=== PATIENT | female | born 1980 | race Caucasian/White ===

== ENCOUNTER 2017-07-28 09:36 | Inpatient (IN) | payer OTHER ==
[2017-07-28 10:36] VITALS: BMI 25.0
--- NOTE | 2017-07-28 10:41 | HP ---
CIWA Score - CIWA Score Nausea/Vomitin-Mild Nausea/No Vomiting Muscle Tremors: 4-Moderate,w/Arms Extend Anxiety: 4-Mod. Anxious/Guarded Agitation: 1-Slight > Activity Paroxysmal Sweats: No Perspiration Orientation: 0-Oriented Tacttile Disturbances: 0-None Auditory Disturbances: 1-Very Mild Visual Disturbances: 1-Very Mild Sensitivity Headache: 1-Very Mild CIWA-Ar Total Score: 13 Admission ROS BHS - HPI Chief Complaint: I'm here to detox from alcohol, I feel sick Allergies/Adverse Reactions: Allergies Allergy/AdvReac Type Severity Reaction Status Date / Time HALDOL Allergy Severe Uncoded 07/28/17 11:04 History of Present Illness: 36 yo woman here for detox from alcohol. Also with opiate dependence, on methadone program for one month - was dosed today and brought in bottle ([facility] [phone] or [id number]). History of black outs and seizures, last seizure 2 months ago. Despite methadone program, she sniffed heroin several times this week when she missed her methadone program. Although she states she takes prescribed klonopin and adderall from a [place] psychiatrist, they do not appear on the [facility] when [place] state also checked. Previously in detox a month ago for two weeks at [facility]. Exam Limitations: No Limitations - Ebola screening Have you traveled outside of the country in the last 21 days: No (N) Have you had contact with anyone from an Ebola affected area: No Have you been sick,other than usual withdrawal symptoms: No Do you have a fever: No - Review of Systems Constitutional: Loss of Appetite, Night Sweats, Changes in sleep EENT: reports: Blurred Vision Respiratory: reports: No Symptoms reported Cardiac: reports: No Symptoms Reported GI: reports: Nausea : reports: Frequency Musculoskeletal: reports: No Symptoms Reported Integumentary: reports: Dryness Neuro: reports: Headache, Seizure, Tremors Endocrine: reports: No Symptoms Reported Hematology: reports: No Symptoms Reported Psychiatric: reports: Judgement Intact, Mood/Affect Appropiate, Orientated x3, Agitated, Anxious Other Systems: Reviewed and Negative Patient History - Patient Medical History Hx Asthma: No Hx Chronic Obstructive Pulmonary Disease (COPD): No Hx Cancer: No Hx Cardiac Disorders: No Hx Congestive Heart Failure: No Hx Hypertension: No Hx Hypercholesterolemia: No Hx Pacemaker: No Hx Seizures: Yes (one month ago) Hx Dementia: No Hx Diabetes: No Hx Gastrointestinal Disorders: No Hx Liver Disease: No Hx Genitourinary Disorders: No Hx Sexually Transmitted Disorders: No Hx Renal Disease (ESRD): No Hx Human Immunodeficiency Virus (HIV): No Hx Hepatitis C: Yes (no treatment) Hx Depression: Yes (on meds ) Hx Suicide Attempt: Yes (may 2017, hospitalized in OR) Hx Bipolar Disorder: Yes Hx Schizophrenia: No - Patient Surgical History Past Surgical History: No Hx Neurologic Surgery: No Hx Cataract Extraction: No Hx Cardiac Surgery: No Hx Lung Surgery: No Hx Breast Surgery: No Hx Breast Biopsy: No Hx Abdominal Surgery: No Hx Appendectomy: No Hx Cholecystectomy: No Hx Genitourinary Surgery: No Hx Section: No Hx Orthopedic Surgery: No Anesthesia Reaction: No - PPD History Previous Implant?: Yes Documented Results: Negative w/o proof Date: 02/18/13 PPD to be Administered?: Yes - Reproductive History Patient is a Female of Child Bearing Age (11 -55 yrs old): Yes Last Menstrual Period: 02/13/13 Patient : Yes - Smoking Cessation Smoking history: Current every day smoker Have you smoked in the past 12 months: Yes Aproximately how many cigarettes per day: 40 Hx Chewing Tobacco Use: No Initiated information on smoking cessation: Yes 'Breaking Loose' booklet given: 07/28/17 (to give on floor) - Substance & Tx. History Hx Alcohol Use: Yes Hx Substance Use: Yes Substance Use Type: Alcohol, Cocaine Hx Substance Use Treatment: Yes (detox, rehab, suboxone, methadone ) - Substances Abused Alcohol Route: Oral Frequency: Daily Amount used: 1 gallon vodka Age of first use: 9 Date of Last Use: 07/28/17 Crack Route: Smoking Frequency: 3-6 times per week Amount used: two $20 bags Age of first use: 16 Date of Last Use: 07/26/17 Heroin Route: Inhalation Frequency: 1-2 times per week Amount used: 30 bags Age of first use: 19 Date of Last Use: 07/25/17 Family Disease History - Family Disease History Family Disease History: Other: Father (, no contact), Mother (living, ) , Sister (three), Daughter (one ) Admission Physical Exam BHS - Vital Signs Vital Signs: Vital Signs - 24 hr 07/28/17 10:07 Temperature 96.5 F L Pulse Rate 87 Respiratory 20 Rate Blood Pressure 135/90 - Physical General Appearance: Yes: Nourished, Appropriately Dressed, Mild Distress, Irritable, Anxious HEENTM: Yes: Hearing grossly Normal, Normocephalic, Normal Voice, Pharynx Normal Respiratory: Yes: Normal Breath Sounds, No Respiratory Distress Neck: Yes: No masses,lesions,Nodules, Supple Breast: Yes: Breast Exam Deferred Cardiology: Yes: Regular Rhythm, Regular Rate Abdominal: Yes: Flat, Soft Genitourinary: Yes: Frequency Back: Yes: Normal Inspection Musculoskeletal: Yes: full range of Motion, Gait Steady Extremities: Yes: Normal Inspection, Normal Range of Motion, Non-Tender, Swelling (both hands with mild swelling and erythema - she states that happens because she was out in the cold) Neurological: Yes: Fully Oriented, Alert, Motor Strength 5/5, Normal Mood/Affect , Normal Response Integumentary: Yes: Normal Color, Warm Lymphatic: Yes: Within Normal Limits - Diagnostic (1) Alcohol dependence Current Visit: Yes Status: Active (2) Cocaine dependence Current Visit: Yes Status: Chronic (3) Methadone maintenance therapy patient Current Visit: Yes Status: Chronic Comment: 120mg daily, [facility] [phone] or [id number] -brought in bottle for verification and had dose today (4) Hepatitis C Current Visit: Yes Status: Chronic Qualifiers: Viral hepatitis chronicity: chronic Hepatic coma status: without hepatic coma Qualified Code(s): B18.2 - Chronic viral hepatitis C (5) Nicotine dependence Current Visit: Yes Status: Acute Qualifiers: Nicotine product type: cigarettes Substance use status: uncomplicated Qualified Code(s): F17.210 - Nicotine dependence, cigarettes, uncomplicated (6) History of seizure Current Visit: Yes Status: Chronic Comment: last one about may [address] [facility] - Detox or Rehab [facility] Level of Care: Medically Managed Detox Regimen/Protocol: Librium [facility] Breath Alcohol Content Breath Alcohol Content: 0.008 Urine Pregancy Test - Result Urine Test Results: Negative- NO Line Present Urine Drug Screen - Results Drug Screen Negative: No Urine Drug Screen Results: LYLY-Cocaine, OPI-Opiates, MTD-Methadone, TCA- Tricyclic Antidepress
[2017-07-28] MEDS ORDERED: MAGNESIUM HYDROX 2400MG/30ML ORAL SUSPENSION 30 ML CUP PO PRN (10:56)
[2017-07-28] MEDS ORDERED: MAGNESIUM CITRATE 300 ML BOTTLE PO PRN (10:56)
[2017-07-28] MEDS ORDERED: guaiFENesin/D-METHORPHAN HB 10 ML UNIT-DOSE CUPS PO PRN (10:56)
[2017-07-28] MEDS ORDERED: LOPERAMIDE HCL 2 MG CAPSULE PO PRN (10:56)
[2017-07-28] MEDS ORDERED: chlordiazePOXIDE HCL 25 MG CAPSULE PO PRN (10:56)
[2017-07-28] MEDS ORDERED: MAG HYDROX/AL HYDROX/SIMETH 30 ML UNIT-DOSE CUP PO PRN (10:56)
[2017-07-28] MEDS ORDERED: ACETAMINOPHEN 325 MG TABLET (FP) PO PRN (10:56)
[2017-07-28] MEDS ORDERED: P-EPHED 60MG/TRIPROLIDI 2.5MG TABLET PO PRN (10:56)
[2017-07-28] MEDS: GABAPENTIN 300 MG CAPSULE (FP) PO SCH ×2 (14:52→18:56)
[2017-07-28] MEDS: diazePAM 5 MG TABLET PO SCH ×2 (14:53→22:26)
[2017-07-28] MEDS ORDERED: diazePAM 5 MG TABLET PO ONE (15:30)
[2017-07-28] MEDS ORDERED: chlordiazePOXIDE HCL 25 MG CAPSULE PO ONE (16:00)
[2017-07-28] MEDS ORDERED: chlordiazePOXIDE HCL 25 MG CAPSULE PO SCH (17:00)
--- NOTE | 2017-07-28 17:04 | CONSULT ---
[facility] Psychiatric Consult - Data Date of interview: 07/28/17 Admission source: [facility] Identifying data: [facility] for this 36 y/o female seeking detox treatment on for heroin,alcohol and cocaine dependence.Patient is single,a mother of one,homeless,unemployed and deprived of financial assistance. Substance Abuse History: Confirmed by patient in this session.See current [facility] report for details : Smoking history: Current every day smoker. Have you smoked in the past 12 months: Yes. Aproximately how many cigarettes per day: 40. Hx Chewing Tobacco Use: No. Initiated information on smoking cessation: Yes. 'Breaking Loose' booklet given: 07/28/17 (to give on floor). - Substance & Tx. History. Hx Alcohol Use: Yes. Hx Substance Use: Yes. Substance Use Type : Alcohol, Cocaine. Hx Substance Use Treatment: Yes (detox, rehab, suboxone, methadone ). - Substances Abused. Alcohol. Route: Oral. Frequency: Daily. Amount used: 1 gallon vodka. Age of first use: 9. Date of Last Use: . Crack. Route: Smoking. Frequency: 3-6 times per week. Amount used : two $20 bags. Age of first use: 16. Date of Last Use: 07/26/17. Heroin. Route: Inhalation. Frequency: 1-2 times per week. Amount used: 30 bags. Age of first use: 19. Date of Last Use: 07/25/17 Medical History: History of hepatitis C and withdrawal-related sezures. Psychiatric History: Onset of psychiatric disturbances in childhood as per self- report.Diagnosed with MDD,Anxiety Disorder and Bipolar Disorder.Patient admits to a history of multiple psychiatric hospitalizations,mainly in [place] ([facility] and [place] ([facility]).According to patient,she is prescribed adderall,klonopin,gabapentin,elavil.Sees a psychiatrist for medication management at the [facility].Ms Ren admits to a history of suicide attempts (wrist-cutting).Patient is an anxious,medication- seeking,unreliable and disorganized historian.Currently on suboxone therapy. Physical/Sexual Abuse/Trauma History: Patient denies history of abuse. Additional Comment: Urine Drug Screen Results: LYLY-Cocaine, OPI-Opiates, MTD- Methadone, TCA-Tricyclic Antidepressant.Noted. Mental Status Exam - Mental Status Exam Alert and Oriented to: Time, Place, Person Cognitive Function: Good Patient Appearance: Unkempt, Disheveled Mood: Nervous, Anxious, Irritable Affect: Mood Congruent Patient Behavior: Restless, Fatigued, Talkative, Cooperative Speech Pattern: Clear, Perseverating (about medications) Voice Loudness: Normal Thought Process: Disorganized Hallucinations: Denies Suicidal Ideation: Denies Homicidal Ideation: Denies Insight/Judgement: Poor Sleep: Poorly, Difficulty falling asleep Appetite: Good Muscle strength/Tone: Normal Gait/Station: Normal Psychiatric Findings - Problem List ([place] 1, 2,3) (1) Opioid dependence on agonist therapy Current Visit: Yes Status: Chronic (2) Alcohol dependence Current Visit: Yes Status: Active (3) Cocaine dependence Current Visit: Yes Status: Chronic (4) Nicotine dependence Current Visit: Yes Status: Chronic Qualifiers: Nicotine product type: cigarettes Substance use status: uncomplicated Qualified Code(s): F17.210 - Nicotine dependence, cigarettes, uncomplicated (5) Substance induced mood disorder Current Visit: Yes Status: Acute - Initial Treatment Plan Initial Treatment Plan: Psychoeducation.Sleep hygiene.Detoxification in progress.Ambien 10 mg po hs prn.Side effects/benefits discussed with patient.She agrees with this careplan.Observation.NO evidence of psychostimulant and a refill for 15 day supply of amitryptiline (100 mg) in pharmacy claims of 07/10/17 at [facility].Amitryptiline is held until EKG results.
[2017-07-28] MEDS: diazePAM 5 MG TABLET PO PRN (18:56)
[2017-07-28] MEDS: THIAMINE HCL 100 MG TABLET (FP) PO SCH (22:25)
[2017-07-28] MEDS: ZOLPIDEM TARTRATE 5 MG TABLET PO PRN (22:26)
[2017-07-29] MEDS: diazePAM 5 MG TABLET PO SCH ×3 (05:54→22:13)
[2017-07-29] MEDS: METHADONE HCL 40 MG DISPERSABLE TABLET PO SCH (05:55)
[2017-07-29] MEDS: GABAPENTIN 300 MG CAPSULE (FP) PO SCH ×3 (05:55→22:13)
[2017-07-29] MEDS ORDERED: METHADONE HCL 10 MG TABLET PO ONE (06:00)
[2017-07-29] MEDS ORDERED: METHADONE HCL 10 MG TABLET PO SCH (06:00)
[2017-07-29] MEDS: diazePAM 5 MG TABLET PO PRN ×2 (09:13→17:43)
[2017-07-29] MEDS: PRENATAL VITAMINS W/ FOLIC ACID TABLET (FP) PO SCH (10:40)
[2017-07-29] MEDS: NICOTINE POLACRILEX 4 MG GUM BUC PRN (10:41)
[2017-07-29] MEDS: hydrOXYzine PAMOATE 50 MG CAPSULE (FP) PO PRN ×2 (10:42→19:59)
[2017-07-29 14:50] LABS: URINE APPEARANCE SLCLOUDY; URINE BILIRUBIN NEGATIVE (NEGATIVE); URINE BLOOD NEGATIVE (NEGATIVE); URINE COLOR YELLOW; URINE GLUCOSE (UA) NEGATIVE (NEGATIVE); URINE KETONE NEGATIVE (NEGATIVE); URINE NITRITE NEGATIVE (NEGATIVE); URINE PROTEIN NEGATIVE (NEGATIVE); URINE UROBILINOGEN 4.0 E.U/dl mg/dL (0.2-1.0)
[2017-07-29 14:53] LABS: URINE LEUK ESTERASE 1+ (NEGATIVE)
[2017-07-29 14:56] LABS: URINE RBC 2 /hpf (0-3); URINE WBC 5 /hpf (3-5)
[2017-07-29] MEDS ORDERED: chlordiazePOXIDE HCL 25 MG CAPSULE PO SCH (17:00)
[2017-07-29] MEDS: MENTHOL/PHENOL 1 EACH UD MM PRN (17:46)
--- NOTE | 2017-07-29 18:16 | PN ---
S CIWA - CIWA Score Nausea/Vomitin-Mild Nausea/No Vomiting Muscle Tremors: 4-Moderate,w/Arms Extend Anxiety: 4-Mod. Anxious/Guarded Agitation: 3 Paroxysmal Sweats: 3 Orientation: 0-Oriented Tacttile Disturbances: 0-None Auditory Disturbances: 0-None Visual Disturbances: 0-None Headache: 0-None Present CIWA-Ar Total Score: 15 BHS Progress Note (SOAP) Subjective: Anxiety,tremors,restless,sweating,interrupted sleep. Objective: 07/29/17 18:16 Vital Signs - 8 hr 07/29/17 07/29/17 07/29/17 11:58 14:24 17:35 Temperature 98.2 F 97.7 F 98.9 F Pulse Rate 88 82 68 Respiratory 18 18 16 Rate Blood Pressure 148/80 91/60 94/55 Laboratory Tests 07/29/17 14:00 Urine Color Yellow Urine Appearance Slcloudy Urine pH 7.0 Ur Specific [place] 1.019 Urine Protein Negative Urine Glucose (UA) Negative Urine Ketones Negative Urine Blood Negative Urine Nitrite Negative Urine Bilirubin Negative Urine Urobilinogen 4.0 e.u/dl H Urine WBC (Auto) 5 Urine RBC (Auto) 2 Ur Epithelial Cells Rare Assessment: 07/29/17 18:17 Withdrawal sx. Plan: Continue detox
[2017-07-29 19:12] LABS: URINE LEUK ESTERASE Negative (NEGATIVE)
[2017-07-29] MEDS: THIAMINE HCL 100 MG TABLET (FP) PO SCH (22:13)
[2017-07-29] MEDS: ZOLPIDEM TARTRATE 5 MG TABLET PO PRN (22:13)
[2017-07-30] MEDS: diazePAM 5 MG TABLET PO PRN ×4 (02:32→16:56)
[2017-07-30] MEDS: IBUPROFEN 400 MG TABLET (FP) PO PRN ×3 (02:32→22:30)
[2017-07-30] MEDS: METHADONE HCL 40 MG DISPERSABLE TABLET PO SCH (05:43)
[2017-07-30] MEDS: GABAPENTIN 300 MG CAPSULE (FP) PO SCH ×3 (05:43→22:30)
[2017-07-30] MEDS: hydrOXYzine PAMOATE 50 MG CAPSULE (FP) PO PRN (09:27)
[2017-07-30] MEDS: PRENATAL VITAMINS W/ FOLIC ACID TABLET (FP) PO SCH (11:01)
[2017-07-30] MEDS: diazePAM 5 MG TABLET PO SCH ×2 (11:02→22:30)
[2017-07-30] MEDS: NICOTINE POLACRILEX 4 MG GUM BUC PRN ×3 (11:06→22:30)
[2017-07-30] MEDS: MENTHOL/PHENOL 1 EACH UD MM PRN (11:07)
[2017-07-30] MEDS ORDERED: BISACODYL 5 MG TABLET.DR (FP) PO PRN (11:07)
[2017-07-30] MEDS ORDERED: BISACODYL 5 MG TABLET.DR (FP) PO ONE (11:08)
[2017-07-30 11:32] LABS: MCH 30.9 pg (25.7-33.7); MEAN CELL VOLUME 93.8 fl (80-96); MEAN PLT VOLUME 7.2 fl (7.5-11.1); PLATELET COUNT 375 K/MM3 (134-434); RDW 12.6 % (11.6-15.6); WHITE BLOOD COUNT 5.1 K/mm3 (4.0-10.0)
[2017-07-30 11:40] LABS: ALBUMIN 3.7 g/dl (3.4-5.0); ANION GAP 9 (8-16); CALCIUM 9.7 mg/dL (8.5-10.1); CO2 29 mmol/L (21-32); CREATININE 0.7 mg/dL (0.55-1.02); GLUCOSE,RANDOM 99 mg/dL (74-106); SGOT/AST 47 U/L (15-37)
[2017-07-30 11:43] LABS: ALK PHOS 104 U/L (45-117); BILIRUBIN,TOTAL 0.4 mg/dL (0.2-1.0); SGPT/ALT 33 U/L (12-78); TOT PROT 7.5 g/dl (6.4-8.2)
[2017-07-30 12:29] LABS: HIV 1 & 2 AB NEGATIVE; HIV 1 AGp24 NEGATIVE
--- NOTE | 2017-07-30 12:56 | PN ---
[facility] CIWA - CIWA Score Nausea/Vomitin Muscle Tremors: 3 Anxiety: 3 Agitation: 3 Paroxysmal Sweats: 3 Orientation: 0-Oriented Tacttile Disturbances: 1-Very Mild Itch/Numbness Auditory Disturbances: 0-None Visual Disturbances: 0-None Headache: 0-None Present CIWA-Ar Total Score: 15 [facility] Progress Note (SOAP) Subjective: interrupted sleep, sweats, shakes, constipation Objective: 07/30/17 12:53 Vital Signs Temperature 96.1 F L 07/30/17 09:52 Pulse Rate 93 H 07/30/17 09:52 Respiratory Rate 18 07/30/17 09:52 Blood Pressure 126/82 07/30/17 09:52 O2 Sat by Pulse Oximetry (%) Laboratory Tests 07/29/17 07/30/17 07/30/17 14:00 07:45 07:45 WBC 5.1 RBC 4.44 Hgb 13.7 Hct 41.7 MCV 93.8 MCH 30.9 MCHC 33.0 RDW 12.6 D Plt Count 375 MPV 7.2 L Sodium 134 L Potassium 4.6 Chloride 96 L Carbon Dioxide 29 Anion Gap 9 BUN 8 D Creatinine 0.7 Creat Clearance w eGFR > 60 Random Glucose 99 Calcium 9.7 Total Bilirubin 0.4 D AST 47 H ALT 33 D Alkaline Phosphatase 104 Total Protein 7.5 Albumin 3.7 Urine Color Yellow Urine Appearance Slcloudy Urine pH 7.0 Ur Specific [place] 1.019 Urine Protein Negative Urine Glucose (UA) Negative Urine Ketones Negative Urine Blood Negative Urine Nitrite Negative Urine Bilirubin Negative Urine Urobilinogen 4.0 e.u/dl H Ur Leukocyte Esterase Negative Urine WBC (Auto) 5 Urine RBC (Auto) 2 Ur Epithelial Cells Rare RPR Titer HIV 1&2 Antibody Screen HIV P24 Antigen 07/30/17 07/30/17 07:45 07:45 WBC RBC Hgb Hct MCV MCH MCHC RDW Plt Count MPV Sodium Potassium Chloride Carbon Dioxide Anion Gap BUN Creatinine Creat Clearance w eGFR Random Glucose Calcium Total Bilirubin AST ALT Alkaline Phosphatase Total Protein Albumin Urine Color Urine Appearance Urine pH Ur Specific [place] Urine Protein Urine Glucose (UA) Urine Ketones Urine Blood Urine Nitrite Urine Bilirubin Urine Urobilinogen Ur Leukocyte Esterase Urine WBC (Auto) Urine RBC (Auto) Ur Epithelial Cells RPR Titer Nonreactive HIV 1&2 Antibody Screen Negative HIV P24 Antigen Negative pt aox3 in nad ambulating , anxious Assessment: 07/30/17 12:54 withdrawal sx's constipation Plan: cont. detox increase fluids dulcolax 5mg /d vistaril 25mg q 4h /prn .
[2017-07-30] MEDS ORDERED: chlordiazePOXIDE 5 MG CAPSULE PO SCH (17:00)
[2017-07-30] MEDS: ZOLPIDEM TARTRATE 5 MG TABLET PO PRN (22:29)
[2017-07-30] MEDS: THIAMINE HCL 100 MG TABLET (FP) PO SCH (22:31)
[2017-07-31] MEDS: hydrOXYzine PAMOATE 50 MG CAPSULE (FP) PO PRN ×2 (00:46→17:11)
[2017-07-31] MEDS: diazePAM 5 MG TABLET PO PRN ×3 (01:28→12:33)
[2017-07-31] MEDS: GABAPENTIN 300 MG CAPSULE (FP) PO SCH ×3 (05:48→22:23)
[2017-07-31] MEDS: METHADONE HCL 40 MG DISPERSABLE TABLET PO SCH (05:48)
[2017-07-31] MEDS: PRENATAL VITAMINS W/ FOLIC ACID TABLET (FP) PO SCH (10:09)
[2017-07-31] MEDS: diazePAM 5 MG TABLET PO SCH ×2 (10:09→22:23)
[2017-07-31] MEDS: BISACODYL 5 MG TABLET.DR (FP) PO PRN (10:37)
--- NOTE | 2017-07-31 15:27 | PN ---
S Progress Note (SOAP) Subjective: Fatigue, chills, tremor, body aches, loss of appetite, constipation (requesting dulcolax, stated she takes dulcolax 10mg daily at home, had small bm yesterday but was hard as per patient). Patient requesting psychiatric consult stating that she takes antipsychotic medication at home and would like to resume them. Objective: 07/31/17 15:24 Last Vital Signs Temp Pulse Resp BP Pulse Ox 96.8 F L 98 H 16 130/85 07/31/17 14:09 07/31/17 14:09 07/31/17 14:09 07/31/17 14:09 Laboratory Tests 07/29/17 07/30/17 07/30/17 14:00 07:45 07:45 WBC 5.1 RBC 4.44 Hgb 13.7 Hct 41.7 MCV 93.8 MCH 30.9 MCHC 33.0 RDW 12.6 D Plt Count 375 MPV 7.2 L Sodium 134 L Potassium 4.6 Chloride 96 L Carbon Dioxide 29 Anion Gap 9 BUN 8 D Creatinine 0.7 Creat Clearance w eGFR > 60 Random Glucose 99 Calcium 9.7 Total Bilirubin 0.4 D AST 47 H ALT 33 D Alkaline Phosphatase 104 Total Protein 7.5 Albumin 3.7 Urine Color Yellow Urine Appearance Slcloudy Urine pH 7.0 Ur Specific [place] 1.019 Urine Protein Negative Urine Glucose (UA) Negative Urine Ketones Negative Urine Blood Negative Urine Nitrite Negative Urine Bilirubin Negative Urine Urobilinogen 4.0 e.u/dl H Ur Leukocyte Esterase Negative Urine WBC (Auto) 5 Urine RBC (Auto) 2 Ur Epithelial Cells Rare RPR Titer HIV 1&2 Antibody Screen HIV P24 Antigen 07/30/17 07/30/17 07:45 07:45 WBC RBC Hgb Hct MCV MCH MCHC RDW Plt Count MPV Sodium Potassium Chloride Carbon Dioxide Anion Gap BUN Creatinine Creat Clearance w eGFR Random Glucose Calcium Total Bilirubin AST ALT Alkaline Phosphatase Total Protein Albumin Urine Color Urine Appearance Urine pH Ur Specific [place] Urine Protein Urine Glucose (UA) Urine Ketones Urine Blood Urine Nitrite Urine Bilirubin Urine Urobilinogen Ur Leukocyte Esterase Urine WBC (Auto) Urine RBC (Auto) Ur Epithelial Cells RPR Titer Nonreactive HIV 1&2 Antibody Screen Negative HIV P24 Antigen Negative Labs noted Assessment: 07/31/17 15:24 Withdrawal symptoms Noted with prolonged QTc of 483 on EKG, otherwise NSR at 82 bpm Plan: Continue detox Encouraged to drink lots of water Psychiatric consult placed (psychiatrist awaits repeated EKG in order to resume any antipsychotic medication) Prolonged QTc: asymptomatic, repeat EKG in AM
--- NOTE | 2017-07-31 16:47 | PN ---
Psychiatric Progress Note Vital Signs: Vital Signs Period Temp Pulse Resp BP Sys/Boyce Pulse Ox Last 24 Hr 96.3 F-98.2 F 71-101 16-18 98-130/56-85 Date of Session: 07/31/17 Chief Complaint:: " I want my elavil" HPI: Pt. is a 36 year old female with h/o heroin, alcohol, and cocaine dependence. ROS: Pt. currently sedated but oriented x3. Current Medications: Active Medications Generic Name Dose Route Start Last Admin Trade Name Freq PRN Reason Stop Dose Admin Acetaminophen 650 mg 07/28/17 10:56 Tylenol - PO Q4H PRN FEVER OR PAIN Al Hydroxide/Mg Hydroxide 30 ml 07/28/17 10:56 Mylanta Oral Suspension - PO Q6H PRN DYSPEPSIA Bisacodyl 10 mg 07/31/17 10:12 07/31/17 10:37 Dulcolax - PO 10 mg DAILY PRN Administration CONSTIPATION Diazepam 5 mg 07/30/17 10:00 07/31/17 10:09 Valium - PO 07/31/17 22:01 5 mg BID NEERAJ Administration Diazepam 5 mg 08/01/17 10:00 Valium - PO 08/01/17 10:01 DAILY NEERAJ Eucalyptus/Menthol/Phenol/Sorbitol 1 each 07/28/17 10:56 07/30/17 11:07 Cepastat Lozenge - MM 1 each Q4H PRN Administration SORE THROAT Gabapentin 300 mg 07/29/17 06:00 07/31/17 14:37 Neurontin - PO 300 mg TID NEERAJ Administration Guaifenesin 10 ml 07/28/17 10:56 Robitussin Dm - PO Q6H PRN COUGH Hydroxyzine Pamoate 50 mg 07/28/17 10:56 07/31/17 00:46 Vistaril - PO 50 mg Q4H PRN Administration AGITATION Ibuprofen 400 mg 07/28/17 10:56 07/30/17 22:30 Motrin - PO 400 mg Q6H PRN Administration SEVERE PAIN Loperamide HCl 4 mg 07/28/17 10:56 Imodium - PO Q6H PRN DIARRHEA Magnesium Citrate 300 ml 07/28/17 10:56 07/29/17 13:27 Citroma - PO 300 ml Q48H PRN Administration CONSTIPATION Magnesium Hydroxide 30 ml 07/28/17 10:56 07/29/17 09:15 Milk Of Magnesia - PO 30 ml DAILY PRN Administration CONSTIPATION Methadone HCl 120 mg 07/29/17 06:00 07/31/17 05:48 Dolophine - PO 120 mg DAILY@0600 NEERAJ Administration Nicotine Polacrilex 4 mg 07/28/17 10:56 07/30/17 22:30 Nicorette Gum - BUC 4 mg Q2H PRN Administration NICOTINE REPLACEMENT RX Multivit/Folic Acid/Iron 1 tab 07/29/17 10:00 07/31/17 10:09 Vitamins (Sjr) - PO 1 tab DAILY NEERAJ Administration Pseudoephedrine/Triprolidine 1 combo 07/28/17 10:56 Actifed - PO TID PRN NASAL CONGESTION Thiamine HCl 100 mg 07/28/17 22:00 07/30/17 22:31 Vitamin B1 - PO 100 mg HS NEERAJ Administration Zolpidem Tartrate 10 mg 07/28/17 22:00 07/30/17 22:29 Ambien - PO 10 mg HS PRN Administration INSOMNIA Medication(s) Change(s): No Current Side Effect: No Lab tests ordered: No Lab tests reviewed: Yes Provider note:: Pt. requesting to speak to the psychiatric nurse practitioner in reference to resuming her elavil 100mg qhs. EKG abnormal at this time. EKG reordered for tomorrow. Pt. also presents as sedated and fatigued. Stated to typewriter tester, " I am so tired and sleepy." Blood Bank Worker informed patient that elavil will not be resumed tonight due to prolonged QT. Pt. agreeable with plan. Will continue to monitor. Total face to face time:: 15
[2017-07-31] MEDS ORDERED: chlordiazePOXIDE HCL 10 MG CAPSULE PO SCH (17:00)
[2017-07-31] MEDS: ZOLPIDEM TARTRATE 5 MG TABLET PO PRN (22:23)
[2017-07-31] MEDS: THIAMINE HCL 100 MG TABLET (FP) PO SCH (22:23)
[2017-08-01] MEDS: GABAPENTIN 300 MG CAPSULE (FP) PO SCH ×2 (05:33→13:12)
[2017-08-01] MEDS: METHADONE HCL 40 MG DISPERSABLE TABLET PO SCH (05:33)
[2017-08-01] MEDS: hydrOXYzine PAMOATE 50 MG CAPSULE (FP) PO PRN (08:02)
--- NOTE | 2017-08-01 08:33 | DS ---
[facility] Detox Discharge Summary Admission Date: 07/28/17 Discharge Date: 08/01/17 - History Present History: Alcohol Dependence, Cocaine Dependence - Physical Exam Results Vital Signs: Vital Signs Temperature 97.2 F L 08/01/17 06:03 Pulse Rate 87 08/01/17 06:03 Respiratory Rate 18 08/01/17 06:03 Blood Pressure 109/91 08/01/17 06:03 O2 Sat by Pulse Oximetry (%) - Treatment Hospital Course: Detox Protocol Followed, Detoxed Safely, Responded well, Discharged Condition Good, Rehab Referral Accepted - Medication Discharge Medications: Ambulatory Orders Amitriptyline HCl [Elavil -] 150 mg PO DAILY 07/28/17 Clonazepam [Klonopin] 1 mg PO TID 07/28/17 Dextroamphetamine/Amphetamine [Adderall Xr 30 mg Capsule] 30 mg PO BID 07/28/17 Gabapentin [Neurontin -] 300 mg PO Q8H 07/28/17 - Diagnosis (1) Alcohol dependence with uncomplicated withdrawal Current Visit: Yes Status: Chronic (2) Cocaine dependence Current Visit: Yes Status: Chronic (3) Nicotine dependence Current Visit: Yes Status: Chronic Qualifiers: Nicotine product type: cigarettes Substance use status: uncomplicated Qualified Code(s): F17.210 - Nicotine dependence, cigarettes, uncomplicated (4) Opioid dependence on agonist therapy Current Visit: Yes Status: Chronic (5) Hepatitis C Current Visit: Yes Status: Chronic Qualifiers: Viral hepatitis chronicity: chronic Hepatic coma status: without hepatic coma Qualified Code(s): B18.2 - Chronic viral hepatitis C (6) History of seizure Current Visit: Yes Status: Chronic
[2017-08-01] MEDS: PRENATAL VITAMINS W/ FOLIC ACID TABLET (FP) PO SCH (09:16)
--- NOTE | 2017-08-01 09:47 | DS ---
[facility] Detox Discharge Summary Admission Date: 07/28/17 Discharge Date: 08/01/17 - History Present History: Alcohol Dependence, Cocaine Dependence - Physical Exam Results Vital Signs: Vital Signs Temperature 97.2 F L 08/01/17 06:03 Pulse Rate 87 08/01/17 06:03 Respiratory Rate 18 08/01/17 06:03 Blood Pressure 109/91 08/01/17 06:03 O2 Sat by Pulse Oximetry (%) Pertinent Admission Physical Exam Findings: repeat ekg - no qt prolongation - Treatment Hospital Course: Detox Protocol Followed, Detoxed Safely, Responded well, Discharged Condition Good, Rehab Referral Accepted Patient has Accepted a Rehab Referral to: [facility] - Medication Discharge Medications: Ambulatory Orders Amitriptyline HCl [Elavil -] 150 mg PO DAILY 07/28/17 Clonazepam [Klonopin] 1 mg PO TID 07/28/17 Dextroamphetamine/Amphetamine [Adderall Xr 30 mg Capsule] 30 mg PO BID 07/28/17 Gabapentin [Neurontin -] 300 mg PO Q8H 07/28/17 - Diagnosis (1) Alcohol dependence with uncomplicated withdrawal Current Visit: Yes Status: Chronic (2) Cocaine dependence Current Visit: Yes Status: Chronic (3) Nicotine dependence Current Visit: Yes Status: Chronic Qualifiers: Nicotine product type: cigarettes Substance use status: uncomplicated Qualified Code(s): F17.210 - Nicotine dependence, cigarettes, uncomplicated (4) Opioid dependence on agonist therapy Current Visit: Yes Status: Chronic (5) Hepatitis C Current Visit: Yes Status: Chronic Qualifiers: Viral hepatitis chronicity: chronic Hepatic coma status: without hepatic coma Qualified Code(s): B18.2 - Chronic viral hepatitis C (6) History of seizure Current Visit: Yes Status: Chronic
[2017-08-01] MEDS ORDERED: diazePAM 5 MG TABLET PO SCH (10:00)
[2017-08-01] MEDS ORDERED: CYCLOBENZAPRINE HCL 5 MG TABLET PO SCH (10:00)
[2017-08-01 10:42] VITALS: BP 102/44; PULSE 108; TEMP 97.7
[2017-08-01] MEDS: BISACODYL 5 MG TABLET.DR (FP) PO PRN (10:56)
[2017-08-01] MEDS: NICOTINE POLACRILEX 4 MG GUM BUC PRN (10:56)
--- NOTE | 2017-08-01 12:11 | PN ---
[facility] Progress Note Note: Psychiatric nurse pracitioner: EKG was reordered after patient had an abnormal EKG on 07/31/2017 of a prolong QTC of 482. EKG normal this morning. QTC 452. As per pharmacy claims patient received a fifteen day prescription of Elavil on 07/10/2017. Pt reports not taking her Elavil in over one week. Elavil to be restarted at 50mg qhs. Verbal consent given. Pt. agreeable with plan.
--- NOTE | 2017-08-01 12:59 | EKG ---
Test Reason : Blood Pressure : / mmHG Vent. Rate : 084 BPM Atrial Rate : 084 BPM P-R Int : 176 ms QRS Dur : 098 ms QT Int : 406 ms P-R-T Axes : 045 071 063 degrees QTc Int : 479 ms SINUS RHYTHM WITH OCCASIONAL PREMATURE VENTRICULAR COMPLEXES OTHERWISE NORMAL ECG NO PREVIOUS ECGS AVAILABLE Confirmed by MATTHEW HOLMAN MD ([id number]) on 08/01/2017 12:59:29 PM Referred By: Confirmed By:MATTHEW HOLMAN MD
--- NOTE | 2017-08-01 13:05 | EKG ---
Test Reason : Blood Pressure : / mmHG Vent. Rate : 097 BPM Atrial Rate : 097 BPM P-R Int : 154 ms QRS Dur : 092 ms QT Int : 356 ms P-R-T Axes : 074 077 071 degrees QTc Int : 452 ms NORMAL SINUS RHYTHM NORMAL ECG WHEN COMPARED WITH ECG OF 31-JUL-2017 13:54, PREMATURE VENTRICULAR COMPLEXES ARE NO LONGER PRESENT Confirmed by MATTHEW HOLMAN MD ([id number]) on 08/01/2017 1:05:28 PM Referred By: Confirmed By:MATTHEW HOLMAN MD
[2017-08-01] MEDS ORDERED: AMITRIPTYLINE HCL 25 MG TABLET (FP) PO SCH (22:00)
== END 2017-08-01 13:25 | disposition other institution (70) | DRG 773 ==
LOC: YASAS 09:36 → Y6N 11:38
PROVIDERS: ADMIT Internal Medicine; ATTEND Internal Medicine
PROC: HZ2ZZZZ Detoxification Services for Substance Abuse Treatment (ICD-10-PCS; principal; 2017-07-28)
DX: F10.230 Alcohol dependence with withdrawal, uncomplicated (principal); F11.23 Opioid dependence with withdrawal; F14.20 Cocaine dependence, uncomplicated; F17.210 Nicotine dependence, cigarettes, uncomplicated; F19.24 Other psychoactive substance dependence with psychoactive substance-induced mood disorder; B18.2 Chronic viral hepatitis C; G47.00 Insomnia, unspecified; G40.909 Epilepsy, unspecified, not intractable, without status epilepticus; I45.81 Long QT syndrome; K59.00 Constipation, unspecified; Z88.8 Allergy status to other drugs, medicaments and biological substances; Z91.5 Personal history of self-harm; Z59.0 Homelessness
CPT/HCPCS: 36415; 80053; 81003; 81015; 85027; 86593; 87389; 93005; 93010

== ENCOUNTER 2017-08-01 13:24 | Inpatient (IN) | payer OTHER ==
[2017-08-01 14:17] VITALS: BMI 25.9
[2017-08-01] MEDS ORDERED: IBUPROFEN 400 MG TABLET (FP) PO PRN (14:36)
[2017-08-01] MEDS ORDERED: ACETAMINOPHEN 325 MG TABLET (FP) PO PRN (14:36)
[2017-08-01] MEDS ORDERED: MAG HYDROX/AL HYDROX/SIMETH 30 ML UNIT-DOSE CUP PO PRN (14:36)
[2017-08-01] MEDS ORDERED: LOPERAMIDE HCL 2 MG CAPSULE PO PRN (14:36)
[2017-08-01] MEDS ORDERED: MAGNESIUM HYDROX 2400MG/30ML ORAL SUSPENSION 30 ML CUP PO PRN (14:36)
[2017-08-01] MEDS ORDERED: MENTHOL/PHENOL 1 EACH UD MM PRN (14:36)
[2017-08-01] MEDS ORDERED: guaiFENesin/D-METHORPHAN HB 10 ML UNIT-DOSE CUPS PO PRN (14:36)
[2017-08-01] MEDS ORDERED: P-EPHED 60MG/TRIPROLIDI 2.5MG TABLET PO PRN (14:36)
--- NOTE | 2017-08-01 14:36 | HP ---
[facility] Rehab Assess/Revision - Admission History Admitted to Rehab from: [facility] Date of Admission to Rehab: 08/01/17 - Vital signs Vital Signs: Vital Signs Period Temp Pulse Resp BP Sys/Boyce Pulse Ox Last 24 Hr 97.4 F-97.4 F 97-97 18-18 110-110/72-72 - Findings Detox History & Physical reviewed: Yes Concur with findings: Yes Inpatient Rehab Admission - Initial Determination Are CD services needed?: Yes Free of communicable disease: Yes Not in need of hospitalization: Yes - Rehab Admission Criteria Lacks judgement: Yes Patient is meeting Inpatient Rehab admission criteria:: Yes
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
[2017-08-01] MEDS: GABAPENTIN 300 MG CAPSULE (FP) PO SCH ×2 (16:08→21:13)
[2017-08-01] MEDS: hydrOXYzine PAMOATE 50 MG CAPSULE (FP) PO PRN (17:21)
[2017-08-01] MEDS: AMITRIPTYLINE HCL 100 MG TABLET PO SCH (21:14)
[2017-08-01] MEDS: THIAMINE HCL 100 MG TABLET (FP) PO SCH (21:14)
[2017-08-01] MEDS ORDERED: BACLOFEN 10 MG TABLET (FP) PO ONE (22:45)
[2017-08-02] MEDS: GABAPENTIN 300 MG CAPSULE (FP) PO SCH ×3 (06:25→21:20)
[2017-08-02] MEDS: PRENATAL VITAMINS W/ FOLIC ACID TABLET (FP) PO SCH (09:37)
[2017-08-02] MEDS: NICOTINE 21 MG/24 HOURS TOPICAL PATCH TD SCH (09:37)
[2017-08-02] MEDS ORDERED: METHADONE HCL 40 MG DISPERSABLE TABLET PO SCH (10:00)
[2017-08-02] MEDS: hydrOXYzine PAMOATE 50 MG CAPSULE (FP) PO PRN ×2 (13:03→21:20)
[2017-08-02] MEDS: CYCLOBENZAPRINE HCL 5 MG TABLET PO PRN ×2 (13:03→21:20)
[2017-08-02] MEDS: MAGNESIUM CITRATE 300 ML BOTTLE PO PRN (13:53)
[2017-08-02] MEDS: THIAMINE HCL 100 MG TABLET (FP) PO SCH (21:20)
[2017-08-02] MEDS: AMITRIPTYLINE HCL 100 MG TABLET PO SCH (21:20)
[2017-08-03] MEDS: GABAPENTIN 300 MG CAPSULE (FP) PO SCH ×3 (06:28→21:23)
[2017-08-03] MEDS ORDERED: METHADONE HCL 40 MG DISPERSABLE TABLET PO SCH (07:23)
[2017-08-03] MEDS ORDERED: METHADONE HCL 40 MG DISPERSABLE TABLET ONE (07:38)
[2017-08-03] MEDS: METHADONE HCL 40 MG DISPERSABLE TABLET PO SCH (07:41)
[2017-08-03] MEDS: CYCLOBENZAPRINE HCL 5 MG TABLET PO PRN ×2 (07:58→19:05)
[2017-08-03] MEDS: PRENATAL VITAMINS W/ FOLIC ACID TABLET (FP) PO SCH (10:41)
[2017-08-03] MEDS: NICOTINE 21 MG/24 HOURS TOPICAL PATCH TD SCH (10:41)
[2017-08-03] MEDS: POLYETHYLENE GLYCOL 3350 119 GM BTL PO SCH (14:12)
[2017-08-03] MEDS ORDERED: PT OWN MED DRAWER 7, Y5N ONE (14:20)
[2017-08-03] MEDS: hydrOXYzine PAMOATE 50 MG CAPSULE (FP) PO PRN (17:06)
[2017-08-03] MEDS: AMITRIPTYLINE HCL 100 MG TABLET PO SCH (21:23)
[2017-08-03] MEDS: THIAMINE HCL 100 MG TABLET (FP) PO SCH (21:23)
[2017-08-03] MEDS ORDERED: BISACODYL 5 MG TABLET.DR (FP) PO ONE (22:00)
[2017-08-04] MEDS: METHADONE HCL 40 MG DISPERSABLE TABLET PO SCH (06:36)
[2017-08-04] MEDS: GABAPENTIN 300 MG CAPSULE (FP) PO SCH ×3 (06:37→21:18)
[2017-08-04] MEDS ORDERED: PT OWN MED DRAWER 7, Y5N ONE (08:19)
[2017-08-04] MEDS: CYCLOBENZAPRINE HCL 5 MG TABLET PO PRN ×2 (08:22→17:03)
[2017-08-04] MEDS: POLYETHYLENE GLYCOL 3350 119 GM BTL PO SCH (09:54)
[2017-08-04] MEDS: NICOTINE 21 MG/24 HOURS TOPICAL PATCH TD SCH (09:55)
[2017-08-04] MEDS: PRENATAL VITAMINS W/ FOLIC ACID TABLET (FP) PO SCH (09:56)
[2017-08-04] MEDS: ATOMOXETINE HCL 25 MG CAPSULE PO SCH (09:56)
[2017-08-04] MEDS: hydrOXYzine PAMOATE 50 MG CAPSULE (FP) PO PRN (18:27)
[2017-08-04] MEDS: MAGNESIUM CITRATE 300 ML BOTTLE PO PRN (18:57)
[2017-08-04] MEDS: AMITRIPTYLINE HCL 100 MG TABLET PO SCH (21:19)
[2017-08-04] MEDS: THIAMINE HCL 100 MG TABLET (FP) PO SCH (21:19)
[2017-08-05] MEDS: GABAPENTIN 300 MG CAPSULE (FP) PO SCH ×3 (06:28→21:14)
[2017-08-05] MEDS: METHADONE HCL 40 MG DISPERSABLE TABLET PO SCH (06:28)
[2017-08-05] MEDS: CYCLOBENZAPRINE HCL 5 MG TABLET PO PRN ×2 (07:48→17:06)
[2017-08-05] MEDS: POLYETHYLENE GLYCOL 3350 119 GM BTL PO SCH (09:45)
[2017-08-05] MEDS: ATOMOXETINE HCL 25 MG CAPSULE PO SCH (09:45)
[2017-08-05] MEDS: PRENATAL VITAMINS W/ FOLIC ACID TABLET (FP) PO SCH (09:46)
[2017-08-05] MEDS: NICOTINE POLACRILEX 4 MG GUM BUC PRN (09:46)
[2017-08-05] MEDS: NICOTINE 21 MG/24 HOURS TOPICAL PATCH TD SCH (09:46)
[2017-08-05] MEDS: hydrOXYzine PAMOATE 50 MG CAPSULE (FP) PO PRN ×2 (15:13→21:14)
[2017-08-05] MEDS: AMITRIPTYLINE HCL 100 MG TABLET PO SCH (21:14)
[2017-08-05] MEDS: THIAMINE HCL 100 MG TABLET (FP) PO SCH (21:14)
[2017-08-06] MEDS: METHADONE HCL 40 MG DISPERSABLE TABLET PO SCH (06:24)
[2017-08-06] MEDS: GABAPENTIN 300 MG CAPSULE (FP) PO SCH ×3 (06:25→21:20)
[2017-08-06] MEDS: CYCLOBENZAPRINE HCL 5 MG TABLET PO PRN ×2 (08:43→17:05)
[2017-08-06] MEDS: NICOTINE 21 MG/24 HOURS TOPICAL PATCH TD SCH (10:13)
[2017-08-06] MEDS: PRENATAL VITAMINS W/ FOLIC ACID TABLET (FP) PO SCH (10:13)
[2017-08-06] MEDS: DOCUSATE SODIUM 100 MG CAPSULE (FP) PO SCH ×2 (10:13→21:20)
[2017-08-06] MEDS: ATOMOXETINE HCL 25 MG CAPSULE PO SCH (10:13)
[2017-08-06] MEDS: POLYETHYLENE GLYCOL 3350 119 GM BTL PO SCH (10:14)
[2017-08-06] MEDS: NICOTINE POLACRILEX 4 MG GUM BUC PRN (10:15)
[2017-08-06] MEDS: hydrOXYzine PAMOATE 50 MG CAPSULE (FP) PO PRN (11:59)
[2017-08-06] MEDS: AMITRIPTYLINE HCL 100 MG TABLET PO SCH (21:20)
[2017-08-06] MEDS: THIAMINE HCL 100 MG TABLET (FP) PO SCH (21:20)
[2017-08-07] MEDS: GABAPENTIN 300 MG CAPSULE (FP) PO SCH ×3 (06:30→21:19)
[2017-08-07] MEDS: METHADONE HCL 40 MG DISPERSABLE TABLET PO SCH (06:31)
[2017-08-07] MEDS ORDERED: PT OWN MED DRAWER 7, Y5N ONE ×2 (08:29→13:45)
[2017-08-07] MEDS: NICOTINE 21 MG/24 HOURS TOPICAL PATCH TD SCH (10:09)
[2017-08-07] MEDS: POLYETHYLENE GLYCOL 3350 119 GM BTL PO SCH (10:09)
[2017-08-07] MEDS: ATOMOXETINE HCL 25 MG CAPSULE PO SCH (10:09)
[2017-08-07] MEDS: PRENATAL VITAMINS W/ FOLIC ACID TABLET (FP) PO SCH (10:09)
[2017-08-07] MEDS: DOCUSATE SODIUM 100 MG CAPSULE (FP) PO SCH ×2 (10:09→21:19)
[2017-08-07] MEDS: CYCLOBENZAPRINE HCL 5 MG TABLET PO PRN ×2 (10:11→17:23)
--- NOTE | 2017-08-07 17:43 | PN ---
[facility] Progress Note (SOAP) Subjective: Patient seen for evaluation of constipation. As per patient, she was taking dulcolax which helped a lot with her constipation. She reports still constipated even though taking citroma. She agreed to take dulcolax 10mg PO prn and senna 2 tablets qhs. Encouraged to drink lots of water. Objective: 08/07/17 17:41 Last Vital Signs Temp Pulse Resp BP Pulse Ox 98.0 F 99 H 18 118/69 08/07/17 07:18 08/07/17 07:18 08/07/17 07:18 08/07/17 07:18 Assessment: 08/07/17 17:42 Patient seen for constipation r/t methadone MMTP Plan: Constipation secondary to methadone MMTP: encouraged to drink lots of water, start senna 2 tablets PO qhs, dulcolax 10mg PO daily prn, continue to monitor
[2017-08-07] MEDS: BISACODYL 5 MG TABLET.DR (FP) PO PRN (20:05)
[2017-08-07] MEDS: THIAMINE HCL 100 MG TABLET (FP) PO SCH (21:19)
[2017-08-07] MEDS: AMITRIPTYLINE HCL 100 MG TABLET PO SCH (21:19)
[2017-08-07] MEDS: SENNOSIDES 8.6MG TABLET (FP) PO SCH (21:20)
[2017-08-08] MEDS: METHADONE HCL 40 MG DISPERSABLE TABLET PO SCH (06:29)
[2017-08-08] MEDS: GABAPENTIN 300 MG CAPSULE (FP) PO SCH ×3 (06:29→21:11)
[2017-08-08] MEDS: CYCLOBENZAPRINE HCL 5 MG TABLET PO PRN (07:04)
[2017-08-08] MEDS ORDERED: PT OWN MED DRAWER 7, Y5N ONE ×2 (08:37→13:18)
[2017-08-08] MEDS: POLYETHYLENE GLYCOL 3350 119 GM BTL PO SCH (10:08)
[2017-08-08] MEDS: NICOTINE 21 MG/24 HOURS TOPICAL PATCH TD SCH (10:09)
[2017-08-08] MEDS: ATOMOXETINE HCL 25 MG CAPSULE PO SCH (10:09)
[2017-08-08] MEDS: PRENATAL VITAMINS W/ FOLIC ACID TABLET (FP) PO SCH (10:09)
[2017-08-08] MEDS: DOCUSATE SODIUM 100 MG CAPSULE (FP) PO SCH ×2 (10:09→21:11)
[2017-08-08] MEDS: BISACODYL 5 MG TABLET.DR (FP) PO PRN (13:18)
[2017-08-08] MEDS: SENNOSIDES 8.6MG TABLET (FP) PO SCH (21:11)
[2017-08-08] MEDS: THIAMINE HCL 100 MG TABLET (FP) PO SCH (21:11)
[2017-08-08] MEDS: AMITRIPTYLINE HCL 100 MG TABLET PO SCH (21:11)
[2017-08-09] MEDS: METHADONE HCL 40 MG DISPERSABLE TABLET PO SCH (06:14)
[2017-08-09] MEDS: GABAPENTIN 300 MG CAPSULE (FP) PO SCH ×3 (06:15→21:09)
[2017-08-09] MEDS: CYCLOBENZAPRINE HCL 5 MG TABLET PO PRN ×2 (06:15→17:05)
[2017-08-09] MEDS: PRENATAL VITAMINS W/ FOLIC ACID TABLET (FP) PO SCH (10:00)
[2017-08-09] MEDS: POLYETHYLENE GLYCOL 3350 119 GM BTL PO SCH (10:00)
[2017-08-09] MEDS: NICOTINE 21 MG/24 HOURS TOPICAL PATCH TD SCH (10:00)
[2017-08-09] MEDS: DOCUSATE SODIUM 100 MG CAPSULE (FP) PO SCH (10:00)
[2017-08-09] MEDS: ATOMOXETINE HCL 25 MG CAPSULE PO SCH (10:00)
[2017-08-09] MEDS ORDERED: ONDANSETRON *ODT* 4 MG TABLET SL PRN (10:11)
[2017-08-09] MEDS ORDERED: PT OWN MED DRAWER 7, Y5N ONE ×2 (10:43→14:56)
--- NOTE | 2017-08-09 12:52 | PN ---
S Progress Note (SOAP) Subjective: Patient c/o constipation and requesting fleets enema daily prn. Patient aware that development writer will not order fleets enema because she is already on a lot of constipation regimen. Patient stated that dulcolax 10mg works in helping her move her bowel. She also c/o feeling nauseous. Patient is drug seeking. Objective: 08/09/17 12:45 Last Vital Signs Temp Pulse Resp BP Pulse Ox 98.1 F 96 H 18 134/89 08/09/17 07:22 08/09/17 07:22 08/09/17 07:22 08/09/17 07:22 Assessment: 08/09/17 12:45 Patient seen for constipation and nausea Plan: Constipation secondary to methadone MMTP: encouraged to drink lots of water ( water pitcher ordered), continue constipation regimen, colace increased to 300mg PO qhs Nausea: zofran 4mg SL q8hr prn, [place] yusuf bid
[2017-08-09] MEDS: BISACODYL 5 MG TABLET.DR (FP) PO PRN (14:56)
[2017-08-09] MEDS: THIAMINE HCL 100 MG TABLET (FP) PO SCH (21:09)
[2017-08-09] MEDS: AMITRIPTYLINE HCL 100 MG TABLET PO SCH (21:09)
[2017-08-09] MEDS: SENNOSIDES 8.6MG TABLET (FP) PO SCH (21:10)
[2017-08-10] MEDS: CYCLOBENZAPRINE HCL 5 MG TABLET PO PRN ×2 (06:38→17:08)
[2017-08-10] MEDS: METHADONE HCL 40 MG DISPERSABLE TABLET PO SCH (06:39)
[2017-08-10] MEDS: GABAPENTIN 300 MG CAPSULE (FP) PO SCH ×3 (06:39→21:23)
[2017-08-10] MEDS ORDERED: PT OWN MED DRAWER 7, Y5N ONE (08:15)
[2017-08-10] MEDS: ATOMOXETINE HCL 25 MG CAPSULE PO SCH (10:05)
[2017-08-10] MEDS: NICOTINE 21 MG/24 HOURS TOPICAL PATCH TD SCH (10:05)
[2017-08-10] MEDS: POLYETHYLENE GLYCOL 3350 119 GM BTL PO SCH (10:05)
[2017-08-10] MEDS: PRENATAL VITAMINS W/ FOLIC ACID TABLET (FP) PO SCH (10:05)
[2017-08-10] MEDS: NICOTINE POLACRILEX 4 MG GUM BUC PRN ×2 (13:51→18:22)
[2017-08-10] MEDS: DOCUSATE SODIUM 100 MG CAPSULE (FP) PO SCH (21:22)
[2017-08-10] MEDS: THIAMINE HCL 100 MG TABLET (FP) PO SCH (21:23)
[2017-08-10] MEDS: AMITRIPTYLINE HCL 100 MG TABLET PO SCH (21:23)
[2017-08-10] MEDS: SENNOSIDES 8.6MG TABLET (FP) PO SCH (21:23)
[2017-08-11] MEDS: GABAPENTIN 300 MG CAPSULE (FP) PO SCH ×3 (06:28→21:20)
[2017-08-11] MEDS: METHADONE HCL 40 MG DISPERSABLE TABLET PO SCH (06:28)
[2017-08-11] MEDS: CYCLOBENZAPRINE HCL 5 MG TABLET PO PRN ×2 (07:24→17:07)
[2017-08-11] MEDS: COLLOIDAL OATMEAL 1 BAR EACH TP PRN (07:46)
[2017-08-11] MEDS ORDERED: PT OWN MED DRAWER 7, Y5N ONE (08:59)
[2017-08-11] MEDS: ATOMOXETINE HCL 25 MG CAPSULE PO SCH (09:52)
[2017-08-11] MEDS: NICOTINE 21 MG/24 HOURS TOPICAL PATCH TD SCH (09:52)
[2017-08-11] MEDS: PRENATAL VITAMINS W/ FOLIC ACID TABLET (FP) PO SCH (09:52)
[2017-08-11] MEDS: POLYETHYLENE GLYCOL 3350 119 GM BTL PO SCH (09:52)
[2017-08-11] MEDS: NICOTINE POLACRILEX 4 MG GUM BUC PRN (09:54)
[2017-08-11] MEDS: hydrOXYzine PAMOATE 50 MG CAPSULE (FP) PO PRN (14:14)
[2017-08-11] MEDS: SENNOSIDES 8.6MG TABLET (FP) PO SCH (21:19)
[2017-08-11] MEDS: THIAMINE HCL 100 MG TABLET (FP) PO SCH (21:19)
[2017-08-11] MEDS: DOCUSATE SODIUM 100 MG CAPSULE (FP) PO SCH (21:20)
[2017-08-11] MEDS: AMITRIPTYLINE HCL 100 MG TABLET PO SCH (21:20)
[2017-08-12] MEDS: GABAPENTIN 300 MG CAPSULE (FP) PO SCH ×3 (06:36→21:17)
[2017-08-12] MEDS: METHADONE HCL 40 MG DISPERSABLE TABLET PO SCH (06:36)
[2017-08-12] MEDS: CYCLOBENZAPRINE HCL 5 MG TABLET PO PRN ×2 (07:38→18:36)
[2017-08-12] MEDS ORDERED: PT OWN MED DRAWER 7, Y5N ONE (09:08)
[2017-08-12] MEDS: ATOMOXETINE HCL 25 MG CAPSULE PO SCH (09:46)
[2017-08-12] MEDS: NICOTINE 21 MG/24 HOURS TOPICAL PATCH TD SCH (09:46)
[2017-08-12] MEDS: PRENATAL VITAMINS W/ FOLIC ACID TABLET (FP) PO SCH (09:46)
[2017-08-12] MEDS: POLYETHYLENE GLYCOL 3350 119 GM BTL PO SCH (09:47)
[2017-08-12] MEDS: hydrOXYzine PAMOATE 50 MG CAPSULE (FP) PO PRN ×2 (10:20→18:36)
[2017-08-12] MEDS: NICOTINE POLACRILEX 4 MG GUM BUC PRN (10:48)
[2017-08-12] MEDS: THIAMINE HCL 100 MG TABLET (FP) PO SCH (21:17)
[2017-08-12] MEDS: SENNOSIDES 8.6MG TABLET (FP) PO SCH (21:18)
[2017-08-12] MEDS: DOCUSATE SODIUM 100 MG CAPSULE (FP) PO SCH (21:18)
[2017-08-12] MEDS: AMITRIPTYLINE HCL 100 MG TABLET PO SCH (21:18)
[2017-08-13] MEDS: METHADONE HCL 40 MG DISPERSABLE TABLET PO SCH (06:07)
[2017-08-13] MEDS: GABAPENTIN 300 MG CAPSULE (FP) PO SCH ×3 (06:07→21:20)
[2017-08-13] MEDS: CYCLOBENZAPRINE HCL 5 MG TABLET PO PRN ×2 (07:01→17:12)
[2017-08-13] MEDS: NICOTINE POLACRILEX 4 MG GUM BUC PRN ×4 (07:02→18:36)
[2017-08-13] MEDS ORDERED: PT OWN MED DRAWER 7, Y5N ONE (08:34)
[2017-08-13] MEDS: ATOMOXETINE HCL 25 MG CAPSULE PO SCH (10:11)
[2017-08-13] MEDS: PRENATAL VITAMINS W/ FOLIC ACID TABLET (FP) PO SCH (10:11)
[2017-08-13] MEDS: NICOTINE 21 MG/24 HOURS TOPICAL PATCH TD SCH (10:12)
[2017-08-13] MEDS: POLYETHYLENE GLYCOL 3350 119 GM BTL PO SCH (10:12)
--- NOTE | 2017-08-13 15:21 | PN ---
Psychiatric Progress Note Vital Signs: Vital Signs Period Temp Pulse Resp BP Sys/Boyce Pulse Ox Last 24 Hr 97.9 F 98 16-18 113/65 Date of Session: 08/13/17 Chief Complaint:: Eduar all over the places,my concentration is poor." HPI: Patient addressed Alcohol,Cannabis and Opioid dependence comorbid with Bipolar disorder.ADHD. ROS: HEP C,H/O Seizures. Current Medications: Active Medications Generic Name Dose Route Start Last Admin Trade Name Freq PRN Reason Stop Dose Admin Acetaminophen 650 mg 08/01/17 14:36 Tylenol - PO Q4H PRN FEVER OR PAIN Al Hydroxide/Mg Hydroxide 30 ml 08/01/17 14:36 Mylanta Oral Suspension - PO Q6H PRN DYSPEPSIA Amitriptyline HCl 100 mg 08/01/17 22:00 08/12/17 21:18 Elavil - PO 100 mg HS NEERAJ Administration Atomoxetine HCl 40 mg 08/14/17 10:00 Strattera - PO DAILY NEERAJ Bisacodyl 10 mg 08/07/17 15:31 08/09/17 14:56 Dulcolax - PO 10 mg DAILY PRN Administration CONSTIPATION Colloidal Oatmeal 1 applic 08/11/17 00:04 08/11/17 07:46 Aveeno Soap - TP 1 applic DAILY PRN Administration HYGEINE Cyclobenzaprine HCl 5 mg 08/02/17 10:20 08/13/17 07:01 Cyclobenzaprine Hcl PO 5 mg TID PRN Administration ANXIETY Docusate Sodium 300 mg 08/10/17 22:00 08/12/17 21:18 Colace - PO 300 mg HS NEERAJ Administration Eucalyptus/Menthol/Phenol/Sorbitol 1 each 08/01/17 14:36 Cepastat Lozenge - MM Q4H PRN SORE THROAT Gabapentin 600 mg 08/01/17 15:30 08/13/17 13:25 Neurontin - PO 600 mg TID NEERAJ Administration Guaifenesin 10 ml 08/01/17 14:36 Robitussin Dm - PO Q6H PRN COUGH Hydroxyzine Pamoate 50 mg 08/01/17 14:36 08/12/17 18:36 Vistaril - PO 50 mg Q4H PRN Administration AGITATION Ibuprofen 400 mg 08/01/17 14:36 Motrin - PO Q6H PRN PAIN Loperamide HCl 4 mg 08/01/17 14:36 Imodium - PO Q6H PRN DIARRHEA Methadone HCl 120 mg 08/10/17 06:00 08/13/17 06:07 Dolophine - PO 08/16/17 05:59 120 mg DAILY@0600 NEERAJ Administration Nicotine 21 mg 08/02/17 10:00 08/13/17 10:12 Nicoderm Patch - TD 21 mg DAILY NEERAJ Administration Nicotine Polacrilex 4 mg 08/01/17 14:36 08/13/17 13:25 Nicorette Gum - BUC 4 mg Q2H PRN Administration NICOTINE REPLACEMENT RX Ondansetron HCl 4 mg 08/09/17 10:11 08/09/17 12:09 Zofran Odt - SL 4 mg Q8H PRN Administration NAUSEA AND/OR VOMITING Polyethylene Glycol 17 gm 08/03/17 13:52 08/13/17 10:12 Miralax (For Daily Use) - PO 17 gm DAILY NEERAJ Administration Multivit/Folic Acid/Iron 1 tab 08/02/17 10:00 08/13/17 10:11 Vitamins (Sjr) - PO 1 tab DAILY NEERAJ Administration Pseudoephedrine/Triprolidine 1 combo 08/01/17 14:36 Actifed - PO TID PRN NASAL CONGESTION Senna 2 tab 08/07/17 22:00 08/12/17 21:18 Senna - PO 2 tab HS NEERAJ Administration Thiamine HCl 100 mg 08/01/17 22:00 08/12/17 21:17 Vitamin B1 - PO 100 mg HS NEERAJ Administration Current Side Effect: No Lab tests ordered: No Lab tests reviewed: Yes Provider note:: Chart was revuwed,patient was seen in my office to address poor concentration,inability to participate in groups due to above reasons.Psychotropic medications has been revuewed and discussed with the patient.Reports some responce to Strattera.Patient will continue current medications.Strattera 25 mg po daily will be adjusted to 40 mg po daily. Supportive therapy provided.Relaxation techniques has been discussed as well. Total face to face time:: 30 Mental Status Exam - Mental Status Exam Alert and Oriented to: Time, Place, Person Cognitive Function: Grossly Intact Patient Appearance: Unkempt Mood: Anxious, Apprehensive, Expansive Affect: Mood Congruent, Labile Patient Behavior: Restless, Distractible, Cooperative Speech Pattern: Clear Voice Loudness: Normal Thought Process: Goal Oriented Thought Disorder: Not Present Hallucinations: Denies Suicidal Ideation: Denies Homicidal Ideation: Denies Insight/Judgement: Fair Sleep: Fair Appetite: Fair Muscle strength/Tone: Normal Gait/Station: Normal Psychiatric Treatment Plan - Problem List (1) Alcohol dependence Current Visit: Yes (2) Cannabis dependence Current Visit: Yes (3) HEP. C Current Visit: Yes (4) Opioid dependence Current Visit: Yes (5) Bipolar II disorder Current Visit: Yes (6) History of seizure Current Visit: Yes Comment: last one about may 2017
[2017-08-13] MEDS: BISACODYL 5 MG TABLET.DR (FP) PO PRN (17:12)
[2017-08-13] MEDS: hydrOXYzine PAMOATE 50 MG CAPSULE (FP) PO PRN (18:36)
[2017-08-13] MEDS: SENNOSIDES 8.6MG TABLET (FP) PO SCH (21:19)
[2017-08-13] MEDS: AMITRIPTYLINE HCL 100 MG TABLET PO SCH (21:19)
[2017-08-13] MEDS: THIAMINE HCL 100 MG TABLET (FP) PO SCH (21:19)
[2017-08-13] MEDS: DOCUSATE SODIUM 100 MG CAPSULE (FP) PO SCH (21:19)
[2017-08-14] MEDS: METHADONE HCL 40 MG DISPERSABLE TABLET PO SCH (06:12)
[2017-08-14] MEDS: GABAPENTIN 300 MG CAPSULE (FP) PO SCH ×3 (06:12→21:18)
[2017-08-14] MEDS: CYCLOBENZAPRINE HCL 5 MG TABLET PO PRN ×2 (06:44→17:04)
[2017-08-14] MEDS: NICOTINE POLACRILEX 4 MG GUM BUC PRN ×3 (07:47→13:18)
[2017-08-14] MEDS: POLYETHYLENE GLYCOL 3350 119 GM BTL PO SCH (10:11)
[2017-08-14] MEDS: NICOTINE 21 MG/24 HOURS TOPICAL PATCH TD SCH (10:12)
[2017-08-14] MEDS: PRENATAL VITAMINS W/ FOLIC ACID TABLET (FP) PO SCH (10:13)
[2017-08-14] MEDS: ATOMOXETINE HCL 40 MG CAPSULE PO SCH (10:13)
[2017-08-14] MEDS: BISACODYL 5 MG TABLET.DR (FP) PO PRN (17:04)
[2017-08-14] MEDS: hydrOXYzine PAMOATE 50 MG CAPSULE (FP) PO PRN (17:04)
[2017-08-14] MEDS: DOCUSATE SODIUM 100 MG CAPSULE (FP) PO SCH (21:18)
[2017-08-14] MEDS: SENNOSIDES 8.6MG TABLET (FP) PO SCH (21:18)
[2017-08-14] MEDS: AMITRIPTYLINE HCL 100 MG TABLET PO SCH (21:18)
[2017-08-14] MEDS: THIAMINE HCL 100 MG TABLET (FP) PO SCH (21:18)
[2017-08-15] MEDS: METHADONE HCL 40 MG DISPERSABLE TABLET PO SCH (06:31)
[2017-08-15] MEDS: GABAPENTIN 300 MG CAPSULE (FP) PO SCH ×3 (06:32→21:23)
[2017-08-15] MEDS: CYCLOBENZAPRINE HCL 5 MG TABLET PO PRN (06:32)
[2017-08-15] MEDS ORDERED: CYCLOBENZAPRINE HCL 5 MG TABLET PO PRN (07:54)
[2017-08-15] MEDS ORDERED: PT OWN MED DRAWER 7, Y5N ONE ×2 (08:43→18:20)
[2017-08-15] MEDS: NICOTINE POLACRILEX 4 MG GUM BUC PRN (10:10)
[2017-08-15] MEDS: ATOMOXETINE HCL 40 MG CAPSULE PO SCH (10:11)
[2017-08-15] MEDS: NICOTINE 21 MG/24 HOURS TOPICAL PATCH TD SCH (10:11)
[2017-08-15] MEDS: PRENATAL VITAMINS W/ FOLIC ACID TABLET (FP) PO SCH (10:11)
[2017-08-15] MEDS: POLYETHYLENE GLYCOL 3350 119 GM BTL PO SCH (10:11)
[2017-08-15] MEDS: BISACODYL 5 MG TABLET.DR (FP) PO PRN (10:13)
[2017-08-15] MEDS: CYCLOBENZAPRINE HCL 10 MG TABLET (FP) PO PRN ×2 (14:15→21:23)
[2017-08-15] MEDS: HYDROCHLOROTHIAZIDE 12.5 MG CAPSULE (FP) PO SCH (14:55)
[2017-08-15] MEDS: VITAMINS A AND D TOPICAL OINTMENT 60 GM TUBE TP SCH (18:20)
[2017-08-15] MEDS: SENNOSIDES 8.6MG TABLET (FP) PO SCH (21:23)
[2017-08-15] MEDS: AMITRIPTYLINE HCL 100 MG TABLET PO SCH (21:23)
[2017-08-15] MEDS: hydrOXYzine PAMOATE 50 MG CAPSULE (FP) PO PRN (21:23)
[2017-08-15] MEDS: DOCUSATE SODIUM 100 MG CAPSULE (FP) PO SCH (21:23)
[2017-08-15] MEDS: THIAMINE HCL 100 MG TABLET (FP) PO SCH (21:24)
[2017-08-16] MEDS: VITAMINS A AND D TOPICAL OINTMENT 60 GM TUBE TP SCH ×4 (01:11→19:16)
[2017-08-16] MEDS: METHADONE HCL 40 MG DISPERSABLE TABLET PO SCH (06:27)
[2017-08-16] MEDS: CYCLOBENZAPRINE HCL 10 MG TABLET (FP) PO PRN ×3 (06:28→21:16)
[2017-08-16] MEDS: GABAPENTIN 300 MG CAPSULE (FP) PO SCH ×3 (06:28→21:16)
[2017-08-16] MEDS: HYDROCHLOROTHIAZIDE 12.5 MG CAPSULE (FP) PO SCH (09:32)
[2017-08-16] MEDS: PRENATAL VITAMINS W/ FOLIC ACID TABLET (FP) PO SCH (09:32)
[2017-08-16] MEDS: BISACODYL 5 MG TABLET.DR (FP) PO PRN (09:33)
[2017-08-16] MEDS: NICOTINE 21 MG/24 HOURS TOPICAL PATCH TD SCH (09:34)
[2017-08-16] MEDS: NICOTINE POLACRILEX 4 MG GUM BUC PRN ×2 (09:34→14:45)
[2017-08-16] MEDS: POLYETHYLENE GLYCOL 3350 119 GM BTL PO SCH (09:35)
[2017-08-16] MEDS: ATOMOXETINE HCL 40 MG CAPSULE PO SCH (09:35)
[2017-08-16] MEDS: THIAMINE HCL 100 MG TABLET (FP) PO SCH (21:16)
[2017-08-16] MEDS: DOCUSATE SODIUM 100 MG CAPSULE (FP) PO SCH (21:16)
[2017-08-16] MEDS: AMITRIPTYLINE HCL 100 MG TABLET PO SCH (21:16)
[2017-08-16] MEDS: SENNOSIDES 8.6MG TABLET (FP) PO SCH (21:16)
[2017-08-17] MEDS: VITAMINS A AND D TOPICAL OINTMENT 60 GM TUBE TP SCH ×4 (02:38→18:25)
[2017-08-17] MEDS ORDERED: PT OWN MED DRAWER 7, Y5N ONE ×4 (03:51→14:29)
[2017-08-17] MEDS: GABAPENTIN 300 MG CAPSULE (FP) PO SCH ×3 (06:42→21:16)
[2017-08-17] MEDS: METHADONE HCL 40 MG DISPERSABLE TABLET PO SCH (06:42)
[2017-08-17] MEDS: CYCLOBENZAPRINE HCL 10 MG TABLET (FP) PO PRN ×2 (07:27→15:28)
[2017-08-17] MEDS: NICOTINE 21 MG/24 HOURS TOPICAL PATCH TD SCH (09:40)
[2017-08-17] MEDS: BISACODYL 5 MG TABLET.DR (FP) PO SCH (09:40)
[2017-08-17] MEDS: HYDROCHLOROTHIAZIDE 12.5 MG CAPSULE (FP) PO SCH (09:40)
[2017-08-17] MEDS: PRENATAL VITAMINS W/ FOLIC ACID TABLET (FP) PO SCH (09:40)
[2017-08-17] MEDS: ATOMOXETINE HCL 40 MG CAPSULE PO SCH (09:40)
[2017-08-17] MEDS: NICOTINE POLACRILEX 4 MG GUM BUC PRN (09:42)
[2017-08-17] MEDS: COLLOIDAL OATMEAL 1 BAR EACH TP PRN (09:47)
[2017-08-17] MEDS: DOCUSATE SODIUM 100 MG CAPSULE (FP) PO SCH (21:16)
[2017-08-17] MEDS: AMITRIPTYLINE HCL 100 MG TABLET PO SCH (21:16)
[2017-08-17] MEDS: THIAMINE HCL 100 MG TABLET (FP) PO SCH (21:16)
[2017-08-17] MEDS: SENNOSIDES 8.6MG TABLET (FP) PO SCH (21:16)
[2017-08-18] MEDS: VITAMINS A AND D TOPICAL OINTMENT 60 GM TUBE TP SCH ×4 (00:41→17:06)
[2017-08-18] MEDS: METHADONE HCL 40 MG DISPERSABLE TABLET PO SCH (06:53)
[2017-08-18] MEDS: CYCLOBENZAPRINE HCL 10 MG TABLET (FP) PO PRN ×2 (06:54→17:26)
[2017-08-18] MEDS: GABAPENTIN 300 MG CAPSULE (FP) PO SCH ×3 (06:54→21:12)
[2017-08-18] MEDS ORDERED: PT OWN MED DRAWER 7, Y5N ONE (08:38)
[2017-08-18] MEDS: HYDROCHLOROTHIAZIDE 12.5 MG CAPSULE (FP) PO SCH (09:55)
[2017-08-18] MEDS: PRENATAL VITAMINS W/ FOLIC ACID TABLET (FP) PO SCH (09:55)
[2017-08-18] MEDS: BISACODYL 5 MG TABLET.DR (FP) PO SCH (09:55)
[2017-08-18] MEDS: NICOTINE 21 MG/24 HOURS TOPICAL PATCH TD SCH (09:56)
[2017-08-18] MEDS: ATOMOXETINE HCL 40 MG CAPSULE PO SCH (09:57)
[2017-08-18] MEDS ORDERED: MAGNESIUM CITRATE 300 ML BOTTLE PO PRN (11:31)
[2017-08-18] MEDS: SENNOSIDES 8.6MG TABLET (FP) PO SCH (21:11)
[2017-08-18] MEDS: DOCUSATE SODIUM 100 MG CAPSULE (FP) PO SCH (21:11)
[2017-08-18] MEDS: AMITRIPTYLINE HCL 100 MG TABLET PO SCH (21:12)
[2017-08-18] MEDS: THIAMINE HCL 100 MG TABLET (FP) PO SCH (21:12)
[2017-08-18] MEDS ORDERED: HYDROCORTISONE 1% TOPICAL CREAM 30 GM TUBE TP PRN (22:05)
[2017-08-19] MEDS: VITAMINS A AND D TOPICAL OINTMENT 60 GM TUBE TP SCH ×5 (00:09→23:35)
[2017-08-19] MEDS: METHADONE HCL 40 MG DISPERSABLE TABLET PO SCH (06:42)
[2017-08-19] MEDS: GABAPENTIN 300 MG CAPSULE (FP) PO SCH ×3 (06:43→21:19)
[2017-08-19] MEDS: CYCLOBENZAPRINE HCL 10 MG TABLET (FP) PO PRN ×2 (06:43→15:05)
[2017-08-19] MEDS ORDERED: PT OWN MED DRAWER 7, Y5N ONE ×2 (08:09→15:05)
[2017-08-19] MEDS: HYDROCHLOROTHIAZIDE 12.5 MG CAPSULE (FP) PO SCH (09:39)
[2017-08-19] MEDS: BISACODYL 5 MG TABLET.DR (FP) PO SCH (09:39)
[2017-08-19] MEDS: NICOTINE 21 MG/24 HOURS TOPICAL PATCH TD SCH (09:39)
[2017-08-19] MEDS: PRENATAL VITAMINS W/ FOLIC ACID TABLET (FP) PO SCH (09:40)
[2017-08-19] MEDS: ATOMOXETINE HCL 40 MG CAPSULE PO SCH (09:40)
[2017-08-19] MEDS: NICOTINE POLACRILEX 4 MG GUM BUC PRN (09:41)
[2017-08-19] MEDS: DOCUSATE SODIUM 100 MG CAPSULE (FP) PO SCH (21:19)
[2017-08-19] MEDS: AMITRIPTYLINE HCL 100 MG TABLET PO SCH (21:20)
[2017-08-19] MEDS: SENNOSIDES 8.6MG TABLET (FP) PO SCH (21:20)
[2017-08-19] MEDS: THIAMINE HCL 100 MG TABLET (FP) PO SCH (21:20)
[2017-08-20] MEDS: METHADONE HCL 40 MG DISPERSABLE TABLET PO SCH (06:25)
[2017-08-20] MEDS: CYCLOBENZAPRINE HCL 10 MG TABLET (FP) PO PRN ×2 (06:26→15:41)
[2017-08-20] MEDS: GABAPENTIN 300 MG CAPSULE (FP) PO SCH ×3 (06:26→21:16)
[2017-08-20] MEDS: VITAMINS A AND D TOPICAL OINTMENT 60 GM TUBE TP SCH ×3 (06:27→18:30)
--- NOTE | 2017-08-20 07:47 | PN ---
[facility] Progress Note Note: C/O NO BM X 5 DAYS DESPITE BEING ON STOOL SOFTENER AND LAXATIVES. ABD SOFT NT/ ND +BS FLEETS ENEMA X 1
[2017-08-20] MEDS ORDERED: SODIUM PHOSPHATE/NA BIPHOS 133 ML ENEMA PR ONE (08:15)
[2017-08-20] MEDS: HYDROCHLOROTHIAZIDE 12.5 MG CAPSULE (FP) PO SCH (09:33)
[2017-08-20] MEDS: BISACODYL 5 MG TABLET.DR (FP) PO SCH (09:33)
[2017-08-20] MEDS: PRENATAL VITAMINS W/ FOLIC ACID TABLET (FP) PO SCH (09:33)
[2017-08-20] MEDS: ATOMOXETINE HCL 40 MG CAPSULE PO SCH (09:34)
[2017-08-20] MEDS: NICOTINE 21 MG/24 HOURS TOPICAL PATCH TD SCH (09:34)
[2017-08-20] MEDS: NICOTINE POLACRILEX 4 MG GUM BUC PRN (13:06)
[2017-08-20] MEDS: hydrOXYzine PAMOATE 50 MG CAPSULE (FP) PO PRN (17:26)
[2017-08-20] MEDS: AMITRIPTYLINE HCL 100 MG TABLET PO SCH (21:15)
[2017-08-20] MEDS: DOCUSATE SODIUM 100 MG CAPSULE (FP) PO SCH (21:15)
[2017-08-20] MEDS: THIAMINE HCL 100 MG TABLET (FP) PO SCH (21:15)
[2017-08-20] MEDS: SENNOSIDES 8.6MG TABLET (FP) PO SCH (21:15)
[2017-08-21] MEDS: VITAMINS A AND D TOPICAL OINTMENT 60 GM TUBE TP SCH ×4 (00:56→18:25)
[2017-08-21] MEDS ORDERED: PT OWN MED DRAWER 7, Y5N ONE ×3 (03:22→11:58)
[2017-08-21] MEDS: METHADONE HCL 40 MG DISPERSABLE TABLET PO SCH (06:31)
[2017-08-21] MEDS: CYCLOBENZAPRINE HCL 10 MG TABLET (FP) PO PRN ×2 (06:32→17:49)
[2017-08-21] MEDS: GABAPENTIN 300 MG CAPSULE (FP) PO SCH ×3 (06:32→21:15)
[2017-08-21] MEDS: HYDROCHLOROTHIAZIDE 12.5 MG CAPSULE (FP) PO SCH (10:02)
[2017-08-21] MEDS: NICOTINE 21 MG/24 HOURS TOPICAL PATCH TD SCH (10:02)
[2017-08-21] MEDS: PRENATAL VITAMINS W/ FOLIC ACID TABLET (FP) PO SCH (10:02)
[2017-08-21] MEDS: BISACODYL 5 MG TABLET.DR (FP) PO SCH (10:02)
[2017-08-21] MEDS: ATOMOXETINE HCL 40 MG CAPSULE PO SCH (10:04)
[2017-08-21] MEDS: NICOTINE POLACRILEX 4 MG GUM BUC PRN (10:06)
[2017-08-21] MEDS: COLLOIDAL OATMEAL 1 BAR EACH TP PRN (12:17)
[2017-08-21] MEDS ORDERED: METHADONE HCL 40 MG DISPERSABLE TABLET PO SCH (13:27)
[2017-08-21] MEDS: DOCUSATE SODIUM 100 MG CAPSULE (FP) PO SCH (21:15)
[2017-08-21] MEDS: AMITRIPTYLINE HCL 100 MG TABLET PO SCH (21:15)
[2017-08-21] MEDS: SENNOSIDES 8.6MG TABLET (FP) PO SCH (21:15)
[2017-08-21] MEDS: THIAMINE HCL 100 MG TABLET (FP) PO SCH (21:15)
[2017-08-22] MEDS: VITAMINS A AND D TOPICAL OINTMENT 60 GM TUBE TP SCH ×2 (00:53→06:39)
[2017-08-22] MEDS ORDERED: PT OWN MED DRAWER 7, Y5N ONE (03:25)
[2017-08-22] MEDS ORDERED: METHADONE 80 MG, METHADONE 30 MG PO SCH (06:00)
[2017-08-22] MEDS ORDERED: METHADONE HCL 10 MG TABLET ONE (06:37)
[2017-08-22] MEDS ORDERED: METHADONE HCL 40 MG DISPERSABLE TABLET ONE (06:37)
[2017-08-22] MEDS: GABAPENTIN 300 MG CAPSULE (FP) PO SCH (06:38)
[2017-08-22] MEDS: CYCLOBENZAPRINE HCL 10 MG TABLET (FP) PO PRN (06:38)
[2017-08-22 07:25] VITALS: BP 98/65; PULSE 105; TEMP 97
[2017-08-22] MEDS: BISACODYL 5 MG TABLET.DR (FP) PO SCH (09:57)
[2017-08-22] MEDS: PRENATAL VITAMINS W/ FOLIC ACID TABLET (FP) PO SCH (09:58)
[2017-08-22] MEDS: NICOTINE 21 MG/24 HOURS TOPICAL PATCH TD SCH (09:58)
[2017-08-22] MEDS: HYDROCHLOROTHIAZIDE 12.5 MG CAPSULE (FP) PO SCH (09:58)
[2017-08-22] MEDS: ATOMOXETINE HCL 40 MG CAPSULE PO SCH (09:59)
--- NOTE | 2017-08-22 10:21 | PN ---
[facility] Progress Note (SOAP) Subjective: d/c today colace prescribed Objective: 08/22/17 10:20 Vital Signs - 8 hr 08/22/17 08/22/17 03:30 07:22 Temperature 97.0 F L Pulse Rate 105 H Respiratory 16 20 Rate Blood Pressure 98/65 klabs reviewed, Assessment: 08/22/17 10:20 psych meds to be prescribed by psychiatrist, f/u MMTP
--- NOTE | 2017-08-22 10:41 | PN ---
Psychiatric Progress Note Vital Signs: Vital Signs Period Temp Pulse Resp BP Sys/Boyce Pulse Ox Last 24 Hr 97.0 F 105 16-20 98/65 Date of Session: 08/22/17 Chief Complaint:: Discharge visit HPI: Patient addressed Alcohol,Opioid and Cannabis dependence comorbid with Bipolar II disorder,PTSD. ROS: Hep c,H/O seizures. Current Medications: Active Medications Generic Name Dose Route Start Last Admin Trade Name Freq PRN Reason Stop Dose Admin Acetaminophen 650 mg 08/01/17 14:36 Tylenol - PO Q4H PRN FEVER OR PAIN Al Hydroxide/Mg Hydroxide 30 ml 08/01/17 14:36 Mylanta Oral Suspension - PO Q6H PRN DYSPEPSIA Amitriptyline HCl 100 mg 08/01/17 22:00 08/21/17 21:15 Elavil - PO 100 mg HS NEERAJ Administration Atomoxetine HCl 40 mg 08/14/17 10:00 08/22/17 09:59 Strattera - PO 40 mg DAILY NEERAJ Administration Bisacodyl 10 mg 08/17/17 10:00 08/22/17 09:57 Dulcolax - PO 10 mg DAILY NEERAJ Administration Colloidal Oatmeal 1 applic 08/11/17 00:04 08/21/17 12:17 Aveeno Soap - TP 1 applic DAILY PRN Administration HYGEINE Cyclobenzaprine HCl 10 mg 08/15/17 08:16 08/22/17 06:38 Flexeril - PO 10 mg TID PRN Administration MUSCLE SPASMS Docusate Sodium 300 mg 08/10/17 22:00 08/21/17 21:15 Colace - PO 300 mg HS NEERAJ Administration Eucalyptus/Menthol/Phenol/Sorbitol 1 each 08/01/17 14:36 Cepastat Lozenge - MM Q4H PRN SORE THROAT Gabapentin 600 mg 08/01/17 15:30 08/22/17 06:38 Neurontin - PO 600 mg TID NEERAJ Administration Guaifenesin 10 ml 08/01/17 14:36 Robitussin Dm - PO Q6H PRN COUGH Hydrochlorothiazide 12.5 mg 08/15/17 14:47 08/22/17 09:58 Hctz - PO 12.5 mg DAILY NEERAJ Administration Hydrocortisone 1 applic 08/18/17 22:05 08/19/17 06:41 Hytone 1% Cream - TP 1 applic TID PRN Administration FOR ITCHING Hydroxyzine Pamoate 50 mg 08/01/17 14:36 08/20/17 17:26 Vistaril - PO 50 mg Q4H PRN Administration AGITATION Loperamide HCl 4 mg 08/01/17 14:36 Imodium - PO Q6H PRN DIARRHEA Magnesium Citrate 300 ml 08/18/17 11:31 08/18/17 12:05 Citroma - PO 300 ml Q48H PRN Administration CONSTIPATION Methadone HCl 80 mg/ Methadone 110 mg 08/22/17 06:00 08/22/17 06:37 HCl 30 mg PO 110 mg DAILY@0600 NEERAJ Administration Nicotine 21 mg 08/02/17 10:00 08/22/17 09:58 Nicoderm Patch - TD Not Given DAILY NEERAJ Nicotine Polacrilex 4 mg 08/01/17 14:36 08/21/17 10:06 Nicorette Gum - BUC 4 mg Q2H PRN Administration NICOTINE REPLACEMENT RX Ondansetron HCl 4 mg 08/09/17 10:11 08/09/17 12:09 Zofran Odt - SL 4 mg Q8H PRN Administration NAUSEA AND/OR VOMITING Multivit/Folic Acid/Iron 1 tab 08/02/17 10:00 08/22/17 09:58 Vitamins (Sjr) - PO 1 tab DAILY NEERAJ Administration Pseudoephedrine/Triprolidine 1 combo 08/01/17 14:36 Actifed - PO TID PRN NASAL CONGESTION Senna 2 tab 08/07/17 22:00 08/21/17 21:15 Senna - PO 2 tab HS NEERAJ Administration Thiamine HCl 100 mg 08/01/17 22:00 08/21/17 21:15 Vitamin B1 - PO 100 mg HS NEERAJ Administration Vitamin A/Vitamin D 1 applic 08/15/17 18:00 08/22/17 06:39 Vitamin A & D Top Oint - TP Not Given Q6HPO NEERAJ Current Side Effect: No Lab tests ordered: No Lab tests reviewed: Yes Provider note:: patient completed this program today.She has met her treatment goals and will continue to address her issues on outpatient basis at [facility] [place]Patient reports ffinding that current medications including Elavil 100 mg po hs,Neurontin 600 mg po tid and Strattera 40 mg po daily help to cope with mood instability,anxiety,impaired attention span, concentration.Scripts for 30 days provided. Patient identified areas of difficulties.She focuses on behaviors which contribute to relapse and insight gained in treatment.Supportive therapy provided focuses on relapse prevention: coping skills,support utilization to maintain recovery. patient is stable for discharge today. Total face to face time:: 30 Mental Status Exam - Mental Status Exam Alert and Oriented to: Time, Place, Person Cognitive Function: Grossly Intact Patient Appearance: Unkempt Mood: Anxious Affect: Mood Congruent, Labile Patient Behavior: Cooperative Speech Pattern: Clear Voice Loudness: Normal Thought Process: Goal Oriented Thought Disorder: Not Present Hallucinations: Denies Suicidal Ideation: Denies Homicidal Ideation: Denies Insight/Judgement: Fair Sleep: Fair Appetite: Fair Muscle strength/Tone: Normal Gait/Station: Normal Psychiatric Treatment Plan - Problem List (1) Alcohol dependence Current Visit: Yes (2) Cannabis dependence Current Visit: Yes (3) HEP. C Current Visit: Yes (4) Opioid dependence Current Visit: Yes (5) Bipolar II disorder Current Visit: Yes (6) History of seizure Current Visit: Yes Comment: last one about may 2017
== END 2017-08-22 10:50 | disposition home or self-care (01) | DRG 772 ==
LOC: YASAS 13:24 → Y3E 13:25
PROVIDERS: ADMIT Psychiatry & Neurology Psychiatry; ATTEND Psychiatry & Neurology Psychiatry
PROC: HZ42ZZZ Group Counseling for Substance Abuse Treatment, Cognitive-Behavioral (ICD-10-PCS; principal; 2017-08-01)
DX: F11.20 Opioid dependence, uncomplicated (principal); F10.20 Alcohol dependence, uncomplicated; F12.20 Cannabis dependence, uncomplicated; F31.81 Bipolar II disorder; B18.2 Chronic viral hepatitis C; K59.03 Drug induced constipation; R11.0 Nausea; Z86.69 Personal history of other diseases of the nervous system and sense organs; Z59.0 Homelessness
CPT/HCPCS: J0475

== ENCOUNTER 2018-12-16 16:41 | Inpatient (IN) | payer OTHER ==
[2018-12-16 20:53] VITALS: BMI 31.0
--- NOTE | 2018-12-16 22:28 | HP ---
COWS - Scale Resting Pulse: 1= [place] 81-100 Sweatin=Flushed/Facial Moisture Restless Observation: 3= Extraneous Movement Pupil Size: 2= Moderately Dilated (Pupils = 4 mm) Bone or Joint Aches: 2= Severe Diffuse Aches Runny Nose/ Eye Tearin= Nasal Congestion GI Upset > 30mins: 2= Nausea/Diarrhea (No diarrhea) Tremor Observation: 2= Slight Tremor Visible Yawning Observation: 0= None Anxiety or Irritability: 2=Irritable/Anxious Goose Flesh Skin: 0=Smooth Skin COWS Score: 17 CIWA Score Nausea/Vomitin-Mild Nausea/No Vomiting Muscle Tremors: 3 (Increased facial moisture) Anxiety: 3 Agitation: 3 Paroxysmal Sweats: 3 (Increased facial moisture) Orientation: 1-Uncertain about Date Tacttile Disturbances: 1-Very Mild Itch/Numbness (Creepy, crawly feeling under skin) Auditory Disturbances: 0-None Visual Disturbances: 0-None Headache: 0-None Present CIWA-Ar Total Score: 15 - Admission Criteria OAS Guidelines: Admission for Medically Managed Detox: Requires at least one of the followin. CIWA greater than 12 2. Seizures within the past 24 hours 3. Delirium tremens within the past 24 hours 4. Hallucinations within the past 24 hours 5. Acute intervention needed for co occurring medical disorder 6. Acute intervention needed for co occurring psychiatric disorder 7. Severe withdrawal that cannot be handled at a lower level of care (continued vomiting, continued diarrhea, abnormal vital signs) requiring intravenous medication and/or fluids 8. Patient presents the following: CIWA greater than 12 Admission Criteria Met: Admission criteria met Admission ROS [facility] Chief Complaint: Having heroin and alcohol withdrawal. Allergies/Adverse Reactions: Allergies Allergy/AdvReac Type Severity Reaction Status Date / Time haloperidol [From Haldol] Allergy Intermediate Swelling Verified 07/28/17 14:19 chlordiazepoxide AdvReac Intermediate Nausea Verified 07/28/17 14:49 [From Librium] History of Present Illness: here for detox from heroin and alcohol. Heroin use began at age 17. Was on [facility] until 3-4 weeks ago. States was started on a taper because of continued alcohol use and dose was decreased from 260 mg methadone to 50 mg when left. Currently using 2 bundles heroin daily, since leaving program. No Narcan Kit at home. Alcohol use began at age 35. Drinks 3-4 pints for past 2 years. Cocaine use began at age 17. Uses once/week. Was on Klonopin from age 17 to 21, 24- 35. Xanax use began at age 35. Takes 2 mg daily (non-prescribed) Hx seizures r/t alcohol and benzo withdrawal- last 2 years ago. Blackouts - 3 weeks ago. States last overdose 5 years ago. PMHx: Constipation, MHHx: Depression, Insomnia, and Anxiety. States uses alcohol and drugs because doesn't want to feel. Denies thoughts of harming self or others. Last saw a MH Provider 3 weeks ago. States "no clean time". Patient Name: Katty Ren Date: 1980 Address: [address] [place] [address] Sex: Female Rx Written Rx Dispensed Drug Quantity Days Supply Prescriber Name 06/22/2018 06/22/2018 lorazepam 1 mg tablet 10 3 Asim Dyson MD Search Terms: Katty Ren, 1980 Search Date: 12/16/2018 10:11:53 PM States Searched: [place], [place], [place], [place], [place], [place], [place] The Drug Utilization Report below displays the controlled substance prescriptions, if any, that were dispensed in the indicated state(s). The information displayed on this report is compiled from requests submitted to other states' PMPs, and accurately reflects the information as returned by them. Blank pope indicate data not provided by other state. This report was requested by: Nevaeh Marquez | Reference #: [id number] There are no results for the search terms that you entered. Exam Limitations: No Limitations - Ebola screening Have you traveled outside of the country in the last 21 days: No Have you had contact with anyone from an Ebola affected area: No Have you been sick,other than usual withdrawal symptoms: No (Denies recent exposure to measles.) Do you have a fever: No - Review of Systems Constitutional: Chills, Diaphoresis, Changes in sleep (Trouble falling/staying asleep. Has taken elavil and seroquel in past.) EENT: reports: Blurred Vision, Nose Congestion Respiratory: reports: No Symptoms reported Cardiac: reports: No Symptoms Reported GI: reports: Constipated (Moves bowels 1-2x/week. BM's brownish. Denies bleeding.), Nausea, Indigestion (acid reflux) : reports: No Symptoms Reported Musculoskeletal: reports: Back Pain (Back pain x 2.5 weeks r/t methadone withdrawal), Muscle Pain (Muscle aches,) Integumentary: reports: Other (feels like skin is crawling) Neuro: reports: Tremors Endocrine: reports: No Symptoms Reported Hematology: reports: No Symptoms Reported Psychiatric: reports: Judgement Intact, Anxious, Disorientated (Missed date by 2 day) Other Systems: Reviewed and Negative Patient History - Patient Medical History Hx Asthma: No Hx Chronic Obstructive Pulmonary Disease (COPD): No Hx Cancer: No Hx Cardiac Disorders: No Hx Congestive Heart Failure: No Hx Hypertension: No Hx Hypercholesterolemia: No Hx Pacemaker: No Hx Seizures: Yes (Alcohol related) Hx Dementia: No Hx Diabetes: No Hx Gastrointestinal Disorders: No Hx Liver Disease: No Hx Genitourinary Disorders: No Hx Sexually Transmitted Disorders: No Hx Renal Disease (ESRD): No Hx Human Immunodeficiency Virus (HIV): No Hx Hepatitis C: Yes (no treatment) Hx Depression: Yes Hx Suicide Attempt: Yes (2month ago cutting wrist) Hx Bipolar Disorder: Yes Hx Schizophrenia: No - Patient Surgical History Past Surgical History: No Hx Neurologic Surgery: No Hx Cataract Extraction: No Hx Cardiac Surgery: No Hx Lung Surgery: No Hx Breast Surgery: No Hx Breast Biopsy: No Hx Abdominal Surgery: No Hx Appendectomy: No Hx Cholecystectomy: No Hx Genitourinary Surgery: No Hx Section: No Hx Orthopedic Surgery: No Anesthesia Reaction: No - PPD History Previous Implant?: Yes Documented Results: Negative w/proof Implanted On Prior [facility] Admission?: Yes Date: 07/30/17 Results: 0mm PPD to be Administered?: Yes - Reproductive History Last Menstrual Period: 07/21/17 - Smoking Cessation Smoking history: Current every day smoker Have you smoked in the past 12 months: Yes Aproximately how many cigarettes per day: 40 Hx Chewing Tobacco Use: No Initiated information on smoking cessation: Yes 'Breaking Loose' booklet given: 12/16/18 - Substance & Tx. History Hx Alcohol Use: Yes Hx Substance Use: Yes Substance Use Type: Alcohol, Cocaine, Heroin Hx Substance Use Treatment: Yes (detox, rehab, recently left [facility]) - Substances abused Alcohol Substance route: Oral Frequency: Daily Amount used: 4 PINTS Age of first use: 35 Date of last use: 12/16/18 Heroin Substance route: Inhalation Frequency: Daily Amount used: 2 BUNDLES Age of first use: 17 Date of last use: 12/16/18 Cocaine Substance route: Smoking Frequency: Daily Amount used: 1 1/2 GM Age of first use: 17 Date of last use: 12/15/18 Alprazolam (Xanax) Substance route: Oral Frequency: Daily Amount used: 2 MG STICK Age of first use: 17 Date of last use: 12/15/18 Family Disease History - Family Disease History Family Disease History: Other: Father (, no contact), Mother (living, ) , Sister (three), Daughter (one ) Admission Physical Exam S - Vital Signs Vital Signs: Vital Signs - 24 hr 12/16/18 12/16/18 20:28 21:52 Temperature 97.6 F 97.6 F Pulse Rate 88 88 Respiratory 18 18 Rate Blood Pressure 150/87 150/87 - Physical General Appearance: Yes: Mild Distress, Tremorous, Sweating (Increased facial moisture) HEENTM: Yes: EOMI (jerking movement of eyes upon (R) lateral gaze), Normocephalic, Normal Voice, LAURO (Pupils = 4 mm), Pharynx Normal Respiratory: Yes: Lungs Clear, Normal Breath Sounds, No Respiratory Distress Neck: Yes: No masses,lesions,Nodules, Supple Breast: Yes: Breast Exam Deferred Cardiology: Yes: Regular Rhythm, S1, S2, Tachycardia Abdominal: Yes: Non Tender, Soft, Increased Bowel Sounds, Protuberent ( Increased abdominal adiposity) Genitourinary: Yes: Within Normal Limits Back: Yes: Normal Inspection Musculoskeletal: Yes: full range of Motion, Gait Steady Extremities: Yes: Normal Capillary Refill, Tremors (Mild tremors) Neurological: Yes: cloth washer back tender II-XII NML intact (jerking movement of eyes upon (R) lateral gaze) Integumentary: Yes: Normal Color, Warm, Track Salas (Old track/pock salas.) Lymphatic: Yes: Within Normal Limits - Diagnostic (1) Alcohol dependence with uncomplicated withdrawal Current Visit: Yes Status: Acute (2) Opioid dependence with withdrawal Current Visit: Yes Status: Acute (3) Anxiolytic dependence Current Visit: Yes Status: Chronic (4) Nystagmus Current Visit: Yes Status: Acute (5) Cocaine dependence Current Visit: Yes Status: Chronic (6) Nicotine dependence Current Visit: Yes Status: Chronic Qualifiers: Nicotine product type: cigarettes Substance use status: uncomplicated Qualified Code(s): F17.210 - Nicotine dependence, cigarettes, uncomplicated (7) History of seizure Current Visit: No Status: Resolved Comment: last one about may 2017 (8) Constipation Current Visit: Yes Status: Chronic Qualifiers: Constipation type: unspecified constipation type Qualified Code(s): K59.00 - Constipation, unspecified Cleared for Admission S - Detox or Rehab [facility] Level of Care: Medically Managed Detox Regimen/Protocol: Methadone (Methadone/Ativan detox) Claeared for Rehab Admission: No Breathalyzer - Breathalyzer Breathalyzer: 0.003 Urine Drug Screen - Test Device Lot number: [id number] Expiration date: 09/05/20 - Control Is test valid?: Yes - Results Drug screen NEGATIVE: No Urine drug screen results: LYLY-Cocaine, FEN-Fentanyl, MOP-Opiates, BZO- Benzodiazepines Inpatient Rehab Admission - Rehab Decision to Admit Inpatient rehab admission?: No
[2018-12-16] MEDS ORDERED: METHADONE HCL 10 MG TABLET (FOR DETOX USE ONLY) PO ONE (23:00)
[2018-12-16] MEDS ORDERED: MAG HYDROX/AL HYDROX/SIMETH 30 ML UNIT-DOSE CUP PO PRN (23:03)
[2018-12-16] MEDS ORDERED: MAGNESIUM HYDROX 2400MG/30ML ORAL SUSPENSION 30 ML CUP PO PRN (23:03)
[2018-12-16] MEDS ORDERED: ACETAMINOPHEN 325 MG TABLET (FP) PO PRN ×2 (23:03)
[2018-12-16] MEDS ORDERED: BISMUTH SUBSALICYLATE 524 MG/30 ML UD PO PRN (23:03)
[2018-12-16] MEDS ORDERED: MAGNESIUM CITRATE 300 ML BOTTLE PO PRN (23:03)
[2018-12-16] MEDS ORDERED: MENTHOL/PHENOL 1 EACH UD MM PRN (23:03)
[2018-12-16] MEDS ORDERED: METHOCARBAMOL 500 MG TABLET PO PRN (23:03)
[2018-12-16] MEDS: DOCUSATE SODIUM 100 MG CAPSULE (FP) PO SCH (23:44)
[2018-12-16] MEDS: LORazepam 2 MG TABLET PO SCH (23:44)
[2018-12-17] MEDS: LORazepam 2 MG TABLET PO SCH ×3 (05:24→17:09)
[2018-12-17] MEDS ORDERED: METHADONE HCL 10 MG TABLET (FOR DETOX USE ONLY) PO ONE (10:00)
[2018-12-17] MEDS: PRENATAL VITAMINS W/ FOLIC ACID TABLET (FP) PO SCH (10:21)
[2018-12-17] MEDS: NICOTINE 21 MG/24 HOURS TOPICAL PATCH TD SCH (10:22)
--- NOTE | 2018-12-17 11:37 | PN ---
[facility] CIWA - CIWA Score Nausea/Vomitin-No Nausea/No Vomiting Muscle Tremors: 4-Moderate,w/Arms Extend Anxiety: 4-Mod. Anxious/Guarded Agitation: 4-Moderately Restless Paroxysmal Sweats: 3 Orientation: 0-Oriented Tacttile Disturbances: 0-None Auditory Disturbances: 0-None Visual Disturbances: 0-None Headache: 0-None Present CIWA-Ar Total Score: 15 [facility] COWS - Scale Resting Pulse: 0= [place] 80 or Below Sweatin=Flushed/Facial Moisture Restless Observation: 1= Difficult to Sit Still Pupil Size: 0= Normal to Room Light Bone or Joint Aches: 2= Severe Diffuse Aches Runny Nose/ Eye Tearin= Nasal Congestion GI Upset > 30mins: 2= Nausea/Diarrhea Tremor Observation of Outstretched Hands: 2= Slight Tremor Visible Yawning Observation: 2= >3x During Session Anxiety or Irritability: 2=Irritable/Anxious Goose Flesh Skin: 0=Smooth Skin COWS Score: 14 [facility] Progress Note (SOAP) Subjective: agitation anxiety sweats body aches irritable muscle cramps nausea headache Objective: 12/17/18 11:37 Vital Signs Temperature 97.3 F L 12/17/18 09:40 Pulse Rate 70 12/17/18 09:40 Respiratory Rate 18 12/17/18 09:40 Blood Pressure 124/65 12/17/18 09:40 O2 Sat by Pulse Oximetry (%) labs reordered aaox3 ambulating no acute distress Assessment: 12/17/18 11:39 withdrawal sx Plan: continue detox increase fluids labs reordered
--- NOTE | 2018-12-17 12:14 | EKG ---
Test Reason : Blood Pressure : / mmHG Vent. Rate : 073 BPM Atrial Rate : 073 BPM P-R Int : 156 ms QRS Dur : 086 ms QT Int : 426 ms P-R-T Axes : 038 074 070 degrees QTc Int : 469 ms NORMAL SINUS RHYTHM NORMAL ECG WHEN COMPARED WITH ECG OF 01-AUG-2017 09:24, T WAVE AMPLITUDE HAS INCREASED IN INFERIOR LEADS NONSPECIFIC T WAVE ABNORMALITY NO LONGER EVIDENT IN LATERAL LEADS Confirmed by MD He, Calvin ([id number]) on 12/17/2018 12:13:52 PM Referred By: Confirmed By:Calvin Cutler MD
[2018-12-17] MEDS: LORazepam 1 MG TABLET PO PRN ×2 (13:21→20:29)
--- NOTE | 2018-12-17 16:34 | CONSULT ---
[facility] Psychiatric Consult - Data Date of interview: 12/17/18 Admission source: [facility] Identifying data: Patient is approached at bedside for the psychiatric interview. Ms Ren declines. Nursing staff is made aware.
[2018-12-17] MEDS: IBUPROFEN 400 MG TABLET (FP) PO PRN (17:09)
[2018-12-17] MEDS: cloNIDine HCL 0.1 MG TABLET PO PRN (20:28)
[2018-12-17] MEDS: DOCUSATE SODIUM 100 MG CAPSULE (FP) PO SCH (22:22)
[2018-12-17] MEDS: THIAMINE HCL 100 MG TABLET (FP) PO SCH (22:22)
[2018-12-17] MEDS: MELATONIN 5 MG TABLETS PO PRN (22:23)
[2018-12-17] MEDS: LORazepam 1 MG TABLET PO SCH (23:38)
[2018-12-18] MEDS: LORazepam 1 MG TABLET PO SCH ×3 (05:37→17:07)
[2018-12-18] MEDS ORDERED: METHADONE HCL 5 MG TABLET (FOR DETOX USE ONLY) ONE (09:33)
[2018-12-18] MEDS ORDERED: METHADONE HCL 10 MG TABLET (FOR DETOX USE ONLY) ONE (09:34)
[2018-12-18] MEDS ORDERED: METHADONE HCL 10 MG TABLET (FOR DETOX USE ONLY) PO ONE (10:00)
[2018-12-18] MEDS ORDERED: METHADONE (DETOX) 20 MG, METHADONE (DETOX) 5 MG PO ONE (10:00)
[2018-12-18] MEDS: NICOTINE 21 MG/24 HOURS TOPICAL PATCH TD SCH (10:44)
[2018-12-18] MEDS: PRENATAL VITAMINS W/ FOLIC ACID TABLET (FP) PO SCH (10:45)
--- NOTE | 2018-12-18 10:56 | PN ---
[facility] CIWA - CIWA Score Nausea/Vomitin-No Nausea/No Vomiting Muscle Tremors: 3 Anxiety: 3 Agitation: 3 Paroxysmal Sweats: 3 Orientation: 0-Oriented Tacttile Disturbances: 0-None Auditory Disturbances: 0-None Visual Disturbances: 0-None Headache: 0-None Present CIWA-Ar Total Score: 12 [facility] COWS - Scale Resting Pulse: 0= [place] 80 or Below Sweatin= Chills/Flushing Restless Observation: 1= Difficult to Sit Still Pupil Size: 0= Normal to Room Light Bone or Joint Aches: 2= Severe Diffuse Aches Runny Nose/ Eye Tearin= Runny Nose/Eyes GI Upset > 30mins: 1= Stomach Cramp Tremor Observation of Outstretched Hands: 2= Slight Tremor Visible Yawning Observation: 2= >3x During Session Anxiety or Irritability: 2=Irritable/Anxious Goose Flesh Skin: 0=Smooth Skin COWS Score: 13 S Progress Note (SOAP) Subjective: restless bodyaches interrupted sleep irritable agitation sweats Objective: 12/18/18 10:54 Vital Signs Temperature 97.3 F L 12/18/18 09:26 Pulse Rate 83 12/18/18 09:26 Respiratory Rate 20 12/18/18 09:26 Blood Pressure 112/50 L 12/18/18 09:26 O2 Sat by Pulse Oximetry (%) Laboratory Tests 12/16/18 21:54 POC Urine HCG, Qual Negative pt agreed to have her blood drawn pending labs Assessment: 12/18/18 10:54 withdrawal sx Plan: continue detox increase fluids repeated labs pending
[2018-12-18] MEDS: LORazepam 1 MG TABLET PO PRN ×2 (13:22→19:47)
[2018-12-18] MEDS: cloNIDine HCL 0.1 MG TABLET PO PRN ×2 (13:22→19:46)
[2018-12-18 14:25] LABS: BASO % 0.3 % (0-2.0); EOS % 0.4 % (0-4.5); HEMATOCRIT 43.8 % (32.4-45.2); LYMPH % 10.9 % (8-40); MCH 33.4 pg (25.7-33.7); MCHC 34.2 g/dl (32.0-36.0); MEAN CELL VOLUME 97.8 fl (80-96); MEAN PLT VOLUME 8.2 fl (7.5-11.1); MONO % 7.8 % (3.8-10.2); NEUT % 80.6 % (42.8-82.8); PLATELET COUNT 327 K/MM3 (134-434); RBC 4.48 M/mm3 (3.60-5.2); RDW 12.4 % (11.6-15.6); WHITE BLOOD COUNT 10.7 K/mm3 (4.0-10.0)
[2018-12-18 14:49] LABS: BILIRUBIN,TOTAL 0.7 mg/dL (0.2-1); CALCIUM 9.9 mg/dL (8.5-10.1); CREATININE 0.8 mg/dL (0.55-1.3); POTASSIUM 4.2 mmol/L (3.5-5.1)
[2018-12-18] MEDS: IBUPROFEN 400 MG TABLET (FP) PO PRN (19:46)
[2018-12-18] MEDS: DOCUSATE SODIUM 100 MG CAPSULE (FP) PO SCH (22:05)
[2018-12-18] MEDS: THIAMINE HCL 100 MG TABLET (FP) PO SCH (22:06)
[2018-12-18] MEDS: LORazepam 0.5 MG TABLET PO SCH (22:07)
[2018-12-18] MEDS: MELATONIN 5 MG TABLETS PO PRN (22:08)
[2018-12-19] MEDS: LORazepam 0.5 MG TABLET PO PRN ×2 (02:20→20:12)
[2018-12-19] MEDS: LORazepam 0.5 MG TABLET PO SCH ×4 (05:37→22:12)
[2018-12-19] MEDS ORDERED: METHADONE HCL 10 MG TABLET (FOR DETOX USE ONLY) PO ONE (10:00)
[2018-12-19] MEDS: PRENATAL VITAMINS W/ FOLIC ACID TABLET (FP) PO SCH (11:01)
[2018-12-19] MEDS: NICOTINE 21 MG/24 HOURS TOPICAL PATCH TD SCH (11:04)
--- NOTE | 2018-12-19 12:28 | PN ---
[facility] Progress Note (SOAP) Subjective: body aches sweats chills Objective: 12/19/18 12:29 Vital Signs Temperature 98.9 F 12/19/18 10:42 Pulse Rate 78 12/19/18 10:42 Respiratory Rate 12/19/18 10:42 Blood Pressure 105/68 12/19/18 10:42 O2 Sat by Pulse Oximetry (%) Laboratory Tests 12/16/18 12/18/18 12/18/18 21:54 11:45 11:45 WBC 10.7 H RBC 4.48 Hgb 15.0 Hct 43.8 MCV 97.8 H MCH 33.4 MCHC 34.2 RDW 12.4 Plt Count 327 MPV 8.2 D Absolute Neuts (auto) 8.6 H Neutrophils % 80.6 Lymphocytes % 10.9 Monocytes % 7.8 Eosinophils % 0.4 Basophils % 0.3 Nucleated RBC % 0 Sodium 137 Potassium 4.2 Chloride 103 Carbon Dioxide 27 Anion Gap 7 L BUN 12 Creatinine 0.8 Est GFR (CKD-EPI)AfAm 109.93 Est GFR (CKD-EPI)NonAf 94.85 Random Glucose 124 H Calcium 9.9 Total Bilirubin 0.7 AST 72 H ALT 90 H Alkaline Phosphatase 79 Total Protein 8.0 Albumin 4.0 POC Urine HCG, Qual Negative RPR Titer HIV 1&2 Antibody Screen HIV P24 Antigen 12/18/18 12/19/18 11:45 07:00 WBC RBC Hgb Hct MCV MCH MCHC RDW Plt Count MPV Absolute Neuts (auto) Neutrophils % Lymphocytes % Monocytes % Eosinophils % Basophils % Nucleated RBC % Sodium Potassium Chloride Carbon Dioxide Anion Gap BUN Creatinine Est GFR (CKD-EPI)AfAm Est GFR (CKD-EPI)NonAf Random Glucose Calcium Total Bilirubin AST ALT Alkaline Phosphatase Total Protein Albumin POC Urine HCG, Qual RPR Titer Nonreactive HIV 1&2 Antibody Screen Negative HIV P24 Antigen Negative aaox3 ambulating no acute distress Assessment: 12/19/18 12:30 mild withdrawal sx Plan: continue detox increase fluids d/c in am
[2018-12-19] MEDS: NICOTINE POLACRILEX 4 MG GUM BUC PRN ×3 (13:53→20:08)
[2018-12-19] MEDS: BACLOFEN 10 MG TABLET (FP) PO SCH ×2 (15:15→22:13)
[2018-12-19] MEDS: METOCLOPRAMIDE HCL 10 MG TABLET (FP) PO SCH (17:08)
[2018-12-19] MEDS: IBUPROFEN 400 MG TABLET (FP) PO PRN (17:47)
[2018-12-19] MEDS: THIAMINE HCL 100 MG TABLET (FP) PO SCH (22:12)
[2018-12-19] MEDS: DOCUSATE SODIUM 100 MG CAPSULE (FP) PO SCH (22:12)
[2018-12-19] MEDS: hydrOXYzine PAMOATE 50 MG CAPSULE (FP) PO PRN (22:13)
[2018-12-19] MEDS: MELATONIN 5 MG TABLETS PO PRN (22:13)
[2018-12-20] MEDS: METOCLOPRAMIDE HCL 10 MG TABLET (FP) PO SCH (06:06)
[2018-12-20] MEDS: BACLOFEN 10 MG TABLET (FP) PO SCH (06:06)
[2018-12-20] MEDS: hydrOXYzine PAMOATE 50 MG CAPSULE (FP) PO PRN (06:08)
[2018-12-20] MEDS: NICOTINE POLACRILEX 4 MG GUM BUC PRN (06:21)
[2018-12-20] MEDS ORDERED: METHADONE HCL 10 MG TABLET (FOR DETOX USE ONLY) PO ONE (09:00)
[2018-12-20 09:21] VITALS: BP 112/68; PULSE 843; TEMP 98.2
--- NOTE | 2018-12-20 09:43 | DS ---
[facility] Detox Discharge Summary Admission Date: 12/16/18 Discharge Date: 12/20/18 - History Present History: Alcohol Dependence, Cocaine Dependence, Opioid Dependence, [facility] - Physical Exam Results Vital Signs: Vital Signs Temperature 98.2 F 12/20/18 09:20 Pulse Rate 843 H 12/20/18 09:20 Respiratory Rate 18 12/20/18 09:20 Blood Pressure 112/68 12/20/18 09:20 O2 Sat by Pulse Oximetry (%) - Treatment Hospital Course: Detox Protocol Followed, Detoxed Safely, Responded well, Discharged Condition Good, Rehab Referral Accepted - Medication Discharge Medications: Ambulatory Orders Amitriptyline HCl [Elavil -] 100 mg PO HS #30 tablet 08/22/17 Docusate Sodium [Colace -] 300 mg PO HS #30 capsule 08/22/17 Gabapentin [Neurontin -] 600 mg PO TID #90 capsule 08/22/17 - Diagnosis (1) Alcohol dependence with uncomplicated withdrawal Current Visit: Yes Status: Chronic (2) Nystagmus Current Visit: Yes Status: Acute (3) Opioid dependence with withdrawal Current Visit: Yes Status: Chronic (4) Cocaine dependence Current Visit: Yes Status: Chronic (5) Constipation Current Visit: Yes Status: Chronic Qualifiers: Constipation type: unspecified constipation type Qualified Code(s): K59.00 - Constipation, unspecified (6) Nicotine dependence Current Visit: Yes Status: Chronic Qualifiers: Nicotine product type: cigarettes Substance use status: uncomplicated Qualified Code(s): F17.210 - Nicotine dependence, cigarettes, uncomplicated (7) ANXIETY Current Visit: No Status: Active (8) DEPRESSION Current Visit: No Status: Active (9) Drug-induced constipation Current Visit: No Status: Acute (10) Nausea Current Visit: No Status: Acute (11) Prolonged Q-T interval on ECG Current Visit: No Status: Acute (12) Substance induced mood disorder Current Visit: No Status: Acute (13) Alcohol dependence with uncomplicated withdrawal Current Visit: No Status: Chronic (14) Bipolar II disorder Current Visit: Yes Status: Chronic (15) Cannabis dependence Current Visit: Yes Status: Chronic (16) Hepatitis C Current Visit: No Status: Chronic Qualifiers: Viral hepatitis chronicity: chronic Hepatic coma status: without hepatic coma Qualified Code(s): B18.2 - Chronic viral hepatitis C (17) Insomnia Current Visit: No Status: Chronic (18) Opioid dependence on agonist therapy Current Visit: No Status: Chronic (19) History of seizure Current Visit: No Status: Resolved - AMA Did Patient Leave Against Medical Advice: No (pt declined rehab; going home)
[2018-12-20] MEDS ORDERED: METHADONE HCL 5 MG TABLET (FOR DETOX USE ONLY) PO ONE (10:00)
[2018-12-21] MEDS ORDERED: METHADONE HCL 5 MG TABLET PO SCH (06:00)
== END 2018-12-20 09:22 | disposition home or self-care (01) | DRG 773 ==
LOC: YASAS 16:41 → Y3N 22:56 → Y6N 23:21
PROVIDERS: ADMIT Surgery; ATTEND Surgery
PROC: HZ2ZZZZ Detoxification Services for Substance Abuse Treatment (ICD-10-PCS; principal; 2018-12-16)
DX: F11.23 Opioid dependence with withdrawal (principal); F10.230 Alcohol dependence with withdrawal, uncomplicated; F13.20 Sedative, hypnotic or anxiolytic dependence, uncomplicated; F14.20 Cocaine dependence, uncomplicated; F12.20 Cannabis dependence, uncomplicated; F17.210 Nicotine dependence, cigarettes, uncomplicated; F41.9 Anxiety disorder, unspecified; F32.9 Major depressive disorder, single episode, unspecified; F31.81 Bipolar II disorder; H55.00 Unspecified nystagmus; R11.0 Nausea; I45.81 Long QT syndrome; B18.2 Chronic viral hepatitis C; G47.00 Insomnia, unspecified; Z88.8 Allergy status to other drugs, medicaments and biological substances; Z86.69 Personal history of other diseases of the nervous system and sense organs; Z91.5 Personal history of self-harm; Z59.0 Homelessness
CPT/HCPCS: 36415; 80053; 81025; 85025; 86593; 87389; 93005; 93010; J0475; J0735